=== PATIENT | male | born 1965 | race African-American/Black ===

== ENCOUNTER 2017-03-22 06:54 | Emergency (ER) | payer BC ==
[2017-03-22] MEDS ORDERED: Aspirin 81 MG Tab.Chew PO ONE (07:44)
--- NOTE | 2017-03-22 07:51 | EDM.PDOC ---
ED HPI GENERAL MEDICAL PROBLEM - General Chief Complaint: General Stated Complaint: dizzy Time Seen by Provider: 03/22/17 07:35 Source of Information: Reports: Patient, Family, RN Notes Reviewed History Limitations: Reports: No Limitations - History of Present Illness INITIAL COMMENTS - FREE TEXT/NARRATIVE: 51-year-old gentleman presents emergency department day complaint of chest pain and headache, he has no known history of coronary artery disease or migraines. States the headache started at the same time the chest pain couple hours ago early this morning describes a chest pain sharp stabbing last between 5 and 10 minutes and now has returned to a dull ache right in the center of this chest. The headache he describes as sharp stabbing behind his eyes and continues. He did not feel short of breath but he was diaphoretic with the pain. Headache Pain Score (Numeric/FACES): 8 - Related Data Allergies Allergy/AdvReac Type Severity Reaction Status Date / Time No Known Allergies Allergy Verified 03/22/17 07:17 Home Meds: Home Meds Albuterol [Ventolin HFA] 2 puff INH Q6H PRN 05/15/13 [History] Cetirizine [ZyrTEC] 10 mg PO DAILY PRN 05/15/13 [History] Fluticasone Propionate [Flovent] 1 puff IH BID 05/15/13 [History] Hydrocodone/Acetaminophen [Vicodin 5-300 mg Tablet] 1 each PO Q6HR PRN 05/15/13 [History] Ibuprofen [Motrin] 600 mg PO Q6H PRN 05/15/13 [History] Montelukast [Singulair] 10 mg PO DAILY 05/15/13 [History] Omeprazole 20 mg PO DAILY 05/15/13 [History] Pseudoephedrine [Sudogest] 60 mg PO Q6H PRN 05/15/13 [History] Sucralfate [Carafate] 1 gm PO Q6H PRN 05/15/13 [History] atorvaSTATin [Lipitor] 20 mg PO BEDTIME 05/15/13 [History] metFORMIN [Glucophage] 500 mg PO BID 05/15/13 [History] Fluticasone Propionate [Flonase] 2 spray NASBOTH BID 11/24/15 [History] Past Medical History HEENT History: Reports: Other (See Below) Other HEENT History: doing allergy shots Cardiovascular History: Reports: High Cholesterol Respiratory History: Reports: Asthma Gastrointestinal History: Reports: GERD Endocrine/Metabolic History: Reports: Diabetes, Type II, Obesity/BMI 30+ Dermatologic History: Reports: Other (See Below) Other Dermatologic History: lipoma - Infectious Disease History Infectious Disease History: Reports: Chicken Pox - Past Surgical History HEENT Surgical History: Reports: Adenoidectomy, Tonsillectomy Other Musculoskeletal Surgeries/Procedures:: left rotator cuff surgery, right elbow Social & Family History - Tobacco Use Smoking Status *Q: Never Smoker Years of Tobacco use: 8 Used Tobacco, but Quit: Yes Month Tobacco Last Used: 02/16 Second Hand Smoke Exposure: Yes - Alcohol Use Days Per Week of Alcohol Use: 0 - Recreational Drug Use Recreational Drug Use: No ED ROS GENERAL - Review of Systems Review Of Systems: See Below Constitutional: Reports: Diaphoresis HEENT: Reports: No Symptoms Respiratory: Denies: Shortness of Breath Cardiovascular: Reports: Chest Pain GI/Abdominal: Reports: No Symptoms : Reports: No Symptoms Musculoskeletal: Reports: No Symptoms ED EXAM, GENERAL - Physical Exam Exam: See Below Free Text/Narrative:: General: Male in moderate discomfort secondary to pain, alert and oriented x3 HEENT: head is atraumatic normocephalic, eyes pupils equal round reactive to light, sclera clear no conjunctivitis appreciated. Ears tympanic membranes clear and robles landmarks and light reflex are present bilaterally canals are clear. Nose no septal deviation, nares are clear, no blood present. Mouth mucosa is moist and pink no erythema or exudate noted in soft palate, tongue is midline uvula is absent, dentition is intact. Neck: Supple no thyromegaly no tracheal deviation. Nodes: Cervical nodes subclavicular nodes nontender no palpable lymphadenopathy noted. Lungs: clear to auscultation bilaterally with symmetrical respirations, no adventitious noise appreciated. CV: Regular rate and rhythm S1 and S2 appreciated no murmurs rubs or gallops noted., Chest is tender to palpation sternal area Abdomen: Soft, nontender, no palpable masses or organomegaly appreciated, no distention no guarding bowel sounds are present, . Neuro: Cranial nerves II through XII grossly intact Skin: Warm and dry, intact Extremities: No lower extremity edema appreciated, . Course - Vital Signs Last Recorded V/S: Last Vital Signs Temp 96.6 F 03/22/17 09:31 Pulse 74 03/22/17 09:31 Resp 14 03/22/17 09:31 BP 136/67 03/22/17 09:31 Pulse Ox 98 03/22/17 09:31 - Orders/Labs/Meds Orders: Active Orders 24 hr Category Date Time Status Cardiac Monitoring [RC] .As Directed Care 03/22/17 07:44 Active EKG Documentation Completion [RC] ASDIRECTED Care 03/22/17 07:45 Active EKG 12 Lead [EK] Stat Ther 03/22/17 07:45 Ordered Labs: Laboratory Tests 03/22/17 03/22/17 03/22/17 Range/Units 07:55 07:55 07:55 WBC 6.5 (4.5-11.0) K/uL RBC 4.46 (4.30-5.90) M/uL Hgb 12.8 (12.0-15.0) g/dL Hct 39.7 L (40.0-54.0) % MCV 89 (80-98) fL MCH 29 (27-31) pg MCHC 32 (32-36) % Plt Count 265 (150-400) K/uL Neut % (Auto) 54 (36-66) % Lymph % (Auto) 38 (24-44) % Lassen % (Auto) 7 H (2-6) % Eos % (Auto) 2 (2-4) % Baso % (Auto) 0 (0-1) % PT 10.5 (9.5-12.0) sec INR 0.98 (0.80-1.20) APTT 25.6 L (27.0-36.0) sec Sodium 138 L (140-148) mmol/L Potassium 4.0 (3.6-5.2) mmol/L Chloride 104 (100-108) mmol/L Carbon Dioxide 30 (21-32) mmol/L Anion Gap 8.0 (5.0-14.0) mmol/L BUN 13 (7-18) mg/dL Creatinine 1.0 (0.8-1.3) mg/dL Est Cr Clr Drug Dosing 87.39 mL/min Estimated GFR (MDRD) > 60 (>60) Glucose 142 H (74-106) mg/dL Calcium 8.6 (8.5-10.1) mg/dL Total Bilirubin 0.4 (0.2-1.0) mg/dL AST 17 (15-37) U/L ALT 28 (12-78) U/L Alkaline Phosphatase 54 (46-116) U/L CK-MB (CK-2) 0.8 (0-3.6) mg/mL Troponin I < 0.017 (0.000-0.056) ng/mL Total Protein 6.9 (6.4-8.2) g/dL Albumin 3.3 L (3.4-5.0) g/dL Globulin 3.6 H (2.3-3.5) g/dL Albumin/Globulin Ratio 0.9 L (1.2-2.2) // Range/Units 11:00 WBC (4.5-11.0) K/uL RBC (4.30-5.90) M/uL Hgb (12.0-15.0) g/dL Hct (40.0-54.0) % MCV (80-98) fL MCH (27-31) pg MCHC (32-36) % Plt Count (150-400) K/uL Neut % (Auto) (36-66) % Lymph % (Auto) (24-44) % Lassen % (Auto) (2-6) % Eos % (Auto) (2-4) % Baso % (Auto) (0-1) % PT (9.5-12.0) sec INR (0.80-1.20) APTT (27.0-36.0) sec Sodium (140-148) mmol/L Potassium (3.6-5.2) mmol/L Chloride (100-108) mmol/L Carbon Dioxide (21-32) mmol/L Anion Gap (5.0-14.0) mmol/L BUN (7-18) mg/dL Creatinine (0.8-1.3) mg/dL Est Cr Clr Drug Dosing mL/min Estimated GFR (MDRD) (>60) Glucose (74-106) mg/dL Calcium (8.5-10.1) mg/dL Total Bilirubin (0.2-1.0) mg/dL AST (15-37) U/L ALT (12-78) U/L Alkaline Phosphatase (46-116) U/L CK-MB (CK-2) 0.7 (0-3.6) mg/mL Troponin I < 0.017 (0.000-0.056) ng/mL Total Protein (6.4-8.2) g/dL Albumin (3.4-5.0) g/dL Globulin (2.3-3.5) g/dL Albumin/Globulin Ratio (1.2-2.2) Meds: Medications Discontinued Medications Generic Name Dose Route Start Last Admin Trade Name Laron PRN Reason Stop Dose Admin Aspirin 324 mg 03/22/17 07:44 03/22/17 07:52 Aspirin PO 03/22/17 07:45 324 mg ONETIME ONE Administration Ketorolac Tromethamine 60 mg 03/22/17 08:12 03/22/17 08:33 Toradol IM 03/22/17 08:13 60 mg ONETIME ONE Administration - Re-Assessments/Exams Free Text/Narrative Re-Assessment/Exam: 03/22/17 10:26 heart score is 4 Departure - Departure Time of Disposition: 11:43 Disposition: Home, Self-Care 01 Condition: Good Clinical Impression: Chest pain, atypical - Discharge Information Forms: ED Department Discharge Additional Instructions: Continue to use ibuprofen as needed for pain control, Please followup with your primary care provider in 3-5 days if not better, please call return to the emergency department with worsening of symptoms. - My Orders Last 24 Hours: My Active Orders 03/22/17 07:44 Cardiac Monitoring [RC] .As Directed 03/22/17 07:45 EKG Documentation Completion [RC] ASDIRECTED EKG 12 Lead [EK] Stat - Assessment/Plan Last 24 Hours: My Active Orders 03/22/17 07:44 Cardiac Monitoring [RC] .As Directed 03/22/17 07:45 EKG Documentation Completion [RC] ASDIRECTED EKG 12 Lead [EK] Stat Plan: Assessment Acuity = acute Site and laterality = atypical chest pain, again the patient with known history of diabetes mellitus type 2 Etiology = unclear etiology Manifestations = headache now resolved Location of injury = Home Lab values = CBC unremarkable, albumin low at 3.3 consistent hypoalbuminemia troponin and CK-MB negative 23 hours apart EKG demonstrates a sinus rhythm no ST changes or depressions, chest x-ray also unremarkable Plan I did review lab work EKG and chest x-ray results with him he was given 60 mg of Toradol this did relieve all his chest pain and headache he had no symptoms during his 3 hour stay, plan to discharge home follow-up primary care in 3-5 days for reevaluation Patient was in agreement with the plan all questions were answered, they were instructed to return to the emergency department or call for worsening symptoms. This note was dictated using [employer] voice recognition software please call with any questions.
[2017-03-22] MEDS ORDERED: Ketorolac 60 MG/2 ML SDV IM ONE (08:12)
--- NOTE | 2017-03-22 09:04 | CR ---
Chest 1V Frontal INDICATION: Chest Pain COMPARISON: 02/17/2013 FINDINGS: Single view of the chest obtained shows normal heart size. No infiltrate or pleural effu hope. No signs of pulmonary edema. IMPRESSION: Negative single view of the chest.
[2017-03-22 10:29] VITALS: BP 136/67
== END 2017-03-22 11:53 | disposition home or self-care (01) ==
LOC: JP.ED 06:54
DX: R07.89 Other chest pain (principal); E78.00 Pure hypercholesterolemia, unspecified; J45.909 Unspecified asthma, uncomplicated; K21.9 Gastro-esophageal reflux disease without esophagitis; E11.9 Type 2 diabetes mellitus without complications; E66.9 Obesity, unspecified; Z68.36 Body mass index [BMI] 36.0-36.9, adult; Z79.84 Long term (current) use of oral hypoglycemic drugs; Z79.899 Other long term (current) drug therapy; Z98.890 Other specified postprocedural states
CPT/HCPCS: 36415; 71010; 80053; 82553; 84484; 85025; 85610; 85730; 93005; 96372; 99285; A9270; J1885

== ENCOUNTER 2017-07-09 11:50 | Emergency (ER) | payer BC ==
[2017-07-09 12:04] VITALS: BP 127/77
[2017-07-09] MEDS ORDERED: HYDROmorphone 1 MG/ML Syringe IVPUSH ONE (12:41)
[2017-07-09] MEDS ORDERED: Cyclobenzaprine 10 MG Tab PO ONE (12:41)
--- NOTE | 2017-07-09 12:44 | EDM.PDOC ---
ED HPI GENERAL MEDICAL PROBLEM - General Chief Complaint: Upper Extremity Injury/Pain Stated Complaint: R SHOULDER PAIN/PULLED MUSCLE? Time Seen by Provider: 07/09/17 12:36 Source of Information: Reports: Patient, RN Notes Reviewed History Limitations: Reports: No Limitations - History of Present Illness INITIAL COMMENTS - FREE TEXT/NARRATIVE: 52-year-old gentleman presents emergency department day complaint of right shoulder pain, he believes he injured himself while moving some furniture he can put his arm above his head but it is quite painful he denies any specific trauma or any specific event no numbness and tingling in the fingers Right Shoulder Pain Score (Numeric/FACES): 7 - Related Data Allergies Allergy/AdvReac Type Severity Reaction Status Date / Time No Known Allergies Allergy Verified 03/22/17 07:17 Home Meds: Home Meds Albuterol [Ventolin HFA] 2 puff INH Q6H PRN 05/15/13 [History] Cetirizine [ZyrTEC] 10 mg PO DAILY PRN 05/15/13 [History] Fluticasone Propionate [Flovent] 1 puff IH BID 05/15/13 [History] Hydrocodone/Acetaminophen [Vicodin 5-300 mg Tablet] 1 each PO Q6HR PRN 05/15/13 [History] Ibuprofen [Motrin] 600 mg PO Q6H PRN 05/15/13 [History] Montelukast [Singulair] 10 mg PO DAILY 05/15/13 [History] Omeprazole 20 mg PO DAILY 05/15/13 [History] Pseudoephedrine [Sudogest] 60 mg PO Q6H PRN 05/15/13 [History] Sucralfate [Carafate] 40 mg PO Q6H PRN 05/15/13 [History] atorvaSTATin [Lipitor] 20 mg PO BEDTIME 05/15/13 [History] metFORMIN [Glucophage] 500 mg PO BID 05/15/13 [History] Fluticasone Propionate [Flonase] 2 spray NASBOTH BID 11/24/15 [History] Past Medical History HEENT History: Reports: Other (See Below) Other HEENT History: doing allergy shots Cardiovascular History: Reports: High Cholesterol Respiratory History: Reports: Asthma Gastrointestinal History: Reports: GERD Endocrine/Metabolic History: Reports: Diabetes, Type II, Obesity/BMI 30+ Dermatologic History: Reports: Other (See Below) Other Dermatologic History: lipoma - Infectious Disease History Infectious Disease History: Reports: Chicken Pox - Past Surgical History HEENT Surgical History: Reports: Adenoidectomy, Tonsillectomy Other Musculoskeletal Surgeries/Procedures:: left rotator cuff surgery, right elbow Social & Family History - Tobacco Use Smoking Status *Q: Never Smoker Years of Tobacco use: 8 Used Tobacco, but Quit: Yes Month Tobacco Last Used: 02/16 Second Hand Smoke Exposure: Yes - Caffeine Use Caffeine Use: Reports: Coffee, Tea - Alcohol Use Days Per Week of Alcohol Use: 0 - Recreational Drug Use Recreational Drug Use: No Review of Systems - Review of Systems Review Of Systems: See Below Respiratory: Reports: No Symptoms Musculoskeletal: Reports: Shoulder Pain Skin: Reports: No Symptoms Neurological: Reports: No Symptoms ED EXAM, GENERAL - Physical Exam Exam: See Below Free Text/Narrative:: Examination of the right shoulder he has full range of motion of the shoulder however it is painful once he gets past 90 abduction, radial pulses +2 he is tender to palpation over the deltoid area no erythema or edema is noted Course - Vital Signs Last Recorded V/S: Last Vital Signs Temp 97.5 F 07/09/17 12:02 Pulse 77 07/09/17 12:02 Resp 14 07/09/17 12:02 BP 127/77 07/09/17 12:02 Pulse Ox 98 07/09/17 12:02 - Orders/Labs/Meds Orders: Active Orders 24 hr Category Date Time Status Shoulder Comp Rt [CR] Stat Exams 07/09/17 12:41 Taken Meds: Medications Discontinued Medications Generic Name Dose Route Start Last Admin Trade Name Laron PRN Reason Stop Dose Admin Cyclobenzaprine HCl 10 mg 07/09/17 12:41 07/09/17 12:49 Flexeril PO 07/09/17 12:42 10 mg ONETIME ONE Administration Hydromorphone HCl 1 mg 07/09/17 12:41 Dilaudid IVPUSH 07/09/17 12:42 ONETIME ONE Hydromorphone HCl 1 mg 07/09/17 12:48 07/09/17 12:49 Dilaudid IM 07/09/17 12:49 1 mg ONETIME ONE Administration Departure - Departure Time of Disposition: 13:19 Disposition: Home, Self-Care 01 Condition: Good Clinical Impression: Right shoulder strain Right shoulder strain Qualifiers: Encounter type: initial encounter Qualified Code(s): S46.911A - Strain of unspecified muscle, fascia and tendon at shoulder and upper arm level, right arm , initial encounter - Discharge Information Referrals: Earnest García MD [Primary Care Provider] - Forms: ED Department Discharge Additional Instructions: Continue to use ibuprofen as needed for pain control, try Flexeril as needed for muscle relaxant Please followup with your primary care provider in 3-5 days if not better, please call return to the emergency department with worsening of symptoms. - My Orders Last 24 Hours: My Active Orders 07/09/17 12:41 Shoulder Comp Rt [CR] Stat - Assessment/Plan Last 24 Hours: My Active Orders 07/09/17 12:41 Shoulder Comp Rt [CR] Stat Plan: Assessment Acuity = acute Site and laterality = right shoulder strain Etiology = secondary lifting injury Manifestations = pain Location of injury = Home Lab values = shoulder x-ray I did review films myself I cannot appreciate any acute process, the official read from radiology is pending Plan He had good relief combination Flexeril and Dilaudid, he was able to have good range of motion after pain control, plan is to discharge home with Flexeril 10 mg by mouth 3 times a day when necessary follow-up with primary care in 3-5 days for further evaluation Patient was in agreement with the plan all questions were answered, they were instructed to return to the emergency department or call for worsening symptoms. This note was dictated using [employer] voice recognition software please call with any questions.
[2017-07-09] MEDS ORDERED: HYDROmorphone 1 MG/ML Syringe IM ONE (12:48)
--- NOTE | 2017-07-10 09:53 | CR ---
Shoulder Comp Rt INDICATION: pain COMPARISON: None FINDINGS: 3 views. No fracture, dislocation, or other acute bony abnormality. Moderate degenerati ve and hypertrophic change at the glenohumeral joint. IMPRESSION: Nothing acute.
== END 2017-07-09 13:39 | disposition home or self-care (01) ==
LOC: JP.ED 11:50
DX: S46.911A Strain of unspecified muscle, fascia and tendon at shoulder and upper arm level, right arm, initial encounter (principal); E11.9 Type 2 diabetes mellitus without complications; K21.9 Gastro-esophageal reflux disease without esophagitis; E66.9 Obesity, unspecified; Z79.899 Other long term (current) drug therapy; X50.1XXA Overexertion from prolonged static or awkward postures, initial encounter
CPT/HCPCS: 73030; 96372; 96374; 99284; A9270; J1170

== ENCOUNTER 2017-07-17 09:05 | Day surgery (SDC) | payer BC ==
[2017-07-17] MEDS ORDERED: Acetaminophen 500 MG Tab PO ONE (09:15)
[2017-07-17] MEDS ORDERED: Dextrose 5%-Lactated Ringers 1,000 ML IV SCH ×2 (09:45→14:45)
[2017-07-17] MEDS ORDERED: Albuterol/Ipratropium 3.0-0.5 MG/3 ML Neb Soln NEB ONE (10:00)
[2017-07-17] MEDS ORDERED: Bupivacaine 0.5%/EPINEPHrine 1:200,000 50 ML MDV ONE (10:24)
[2017-07-17] MEDS ORDERED: Ampicillin/Sulbactam Na 3 GM in Sodium Chloride 0.9% 100 ML IV ONE (10:30)
[2017-07-17] MEDS ORDERED: Rocuronium 50 MG/5 ML Vial ONE (10:35)
[2017-07-17] MEDS ORDERED: Glycopyrrolate 0.2 MG/ML 5 ML MDV ONE (10:35)
[2017-07-17] MEDS ORDERED: Succinylcholine 200 MG/10 ML MDV ONE (10:35)
[2017-07-17] MEDS ORDERED: Neostigmine Methylsulfate 1 MG/ML 5 ML Syringe ONE (10:35)
[2017-07-17] MEDS ORDERED: Dexamethasone 4 MG/ML SDV ONE (10:35)
[2017-07-17] MEDS ORDERED: Propofol 200 MG/20 ML SDV ONE (10:36)
[2017-07-17] MEDS ORDERED: fentaNYL 250 MCG/5 ML SDV ONE (10:37)
[2017-07-17] MEDS ORDERED: Midazolam 1 MG/ML 2 ML SDV ONE (10:37)
[2017-07-17] MEDS ORDERED: Ondansetron 4 MG/2 ML SDV ONE (10:39)
[2017-07-17] MEDS ORDERED: HYDROmorphone/Normal Saline 15 MG/30 ML PCA IV PRN (12:40)
[2017-07-17] MEDS ORDERED: Naloxone 0.4 MG/ML SDV IVPUSH PRN (12:40)
[2017-07-17] MEDS ORDERED: Insulin Aspart 100 Units/ML 3 ML Pen SUBCUT ONE (14:00)
[2017-07-17] MEDS ORDERED: Ondansetron 4 MG/2 ML SDV IVPUSH PRN (14:44)
[2017-07-17] MEDS ORDERED: Albuterol/Ipratropium 3.0-0.5 MG/3 ML Neb Soln INH PRN (14:45)
[2017-07-17] MEDS ORDERED: Cyclobenzaprine 10 MG Tab PO PRN (14:46)
[2017-07-17] MEDS ORDERED: Glucose Gel 15 GM in 37.5 GM Tube PO PRN (15:17)
[2017-07-17] MEDS ORDERED: 50% Dextrose in Water 50 ML Syringe IVPUSH PRN (15:17)
[2017-07-17] MEDS ORDERED: Glucagon,Human Recombinant 1 MG Vial IM PRN (15:17)
[2017-07-17] MEDS: Polymyxin B/Trimethoprim 10 ML Bottle EYEBOTH SCH ×2 (16:25→22:00)
[2017-07-17] MEDS: Albuterol/Ipratropium 3.0-0.5 MG/3 ML Neb Soln INH SCH ×2 (16:25→21:59)
[2017-07-17] MEDS: Ibuprofen 600 MG Tab PO SCH ×2 (16:28→22:00)
[2017-07-17] MEDS ORDERED: Pantoprazole 40 MG Vial IV SCH (16:30)
[2017-07-17] MEDS ORDERED: metFORMIN 500 MG Tab PO SCH (17:00)
[2017-07-17] MEDS: Acetaminophen/HYDROcodone 325-5 MG Tab PO PRN ×2 (17:33→22:25)
[2017-07-17] MEDS: Ampicillin/Sulbactam Na 3 GM in Sodium Chloride 0.9% 100 ML IV SCH (18:06)
[2017-07-17] MEDS: Insulin Aspart 100 Units/ML 3 ML Pen SUBCUT PRN ×2 (18:07→22:03)
[2017-07-17] MEDS ORDERED: Montelukast 10 MG Tab PO SCH (21:00)
[2017-07-17] MEDS: Ketotifen 0.025% Ophth Soln 5 ML Bottle EYEBOTH SCH (21:58)
[2017-07-18] MEDS: Ampicillin/Sulbactam Na 3 GM in Sodium Chloride 0.9% 100 ML IV SCH ×2 (00:10→05:30)
[2017-07-18] MEDS: Polymyxin B/Trimethoprim 10 ML Bottle EYEBOTH SCH ×2 (00:10→03:15)
[2017-07-18] MEDS: Acetaminophen/HYDROcodone 325-5 MG Tab PO PRN ×2 (03:14→09:27)
[2017-07-18] MEDS: Ibuprofen 600 MG Tab PO SCH (05:30)
[2017-07-18 08:32] VITALS: BP 114/51
[2017-07-18] MEDS: Ketotifen 0.025% Ophth Soln 5 ML Bottle EYEBOTH SCH (09:28)
--- NOTE | 2017-07-18 17:17 | DISCH ---
FINAL DIAGNOSES: 1. Biliary dyskinesia. 2. Fatty infiltrated liver. 3. Umbilical hernia. 4. Type 2 diabetes mellitus. 5. History of asthma. 6. History of hyperlipidemia. 7. History of lipoma of neck. 8. History of obstructive sleep apnea. OPERATIVE PROCEDURES: These were done on the date of admission; diagnostic laparoscopy followed by; 1. Laparoscopic cholecystectomy. 2. Chapito-Cut needle liver biopsy. 3. Umbilical hernia repair. HOSPITAL COURSE: This is a 52-year-old male presenting with recurrent abdominal pain with an abnormal CCK-stimulated HIDA scan. On the date of admission, he underwent a laparoscopic cholecystectomy, concurrently had a liver biopsy for a fatty-infiltrated liver, and repair of an umbilical hernia. Postoperatively, no major problems have been noted. He will be discharged home today. The patient is a type 2 diabetic, presently only on metformin. The blood sugars have been somewhat elevated here, and I suspect he may not be well controlled. We will have the associate dentist see the patient before discharge and perhaps consider glucose monitor and see how things are going in that regard and, otherwise, record latest blood sugars 2 to 3 times per day and bring a log for followup. He will be following up here to have his lipoma of his neck operated on, on 07/27/2017, and we will recheck the abdominal wounds at that time. DISCHARGE MEDICATIONS: Otherwise, medications are the same as prior to discharge plus [place] 5/325 one to two tabs q.4 hours p.r.n. pain, #50.
--- NOTE | 2017-07-18 17:17 | OR ---
DATE OF PROCEDURE: 07/17/2017 PREOPERATIVE DIAGNOSIS: Biliary dyskinesia. POSTOPERATIVE DIAGNOSES: 1. Biliary dyskinesia. 2. Fatty infiltrated liver. 3. Umbilical hernia. OPERATIVE PROCEDURES: Diagnostic laparoscopy with: 1. Laparoscopic cholecystectomy (57763). 2. Chapito-Cut needle liver biopsy (47857). 3. Repair of umbilical hernia ([id number]). ANESTHESIA: General. WOODWORK TEACHER: Domitila Manning PA-C. INDICATIONS FOR PROCEDURE: This is a 52-year-old male presenting with recurrent upper abdominal pain. As part of the workup, the patient underwent a CCK-stimulated HIDA scan, which showed an ejection fraction of around 7% and the CCK injection caused reproduction of the symptoms. Given this, he is to undergo a cholecystectomy. The potential risks of the procedure including bleeding, infection, injury to underlying viscera such as common bile duct, possible persistent symptoms post cholecystectomy were all reviewed, and the patient wishes to proceed. DETAILS OF PROCEDURE: The patient was taken to the operating room and placed in a supine position. After general endotracheal anesthesia was induced, the abdomen was prepped and draped. A transverse epigastric incision was made, and the peritoneal cavity was entered under direct vision with an Optiview trocar and inflated to 15 mmHg pressure of CO2. Laparoscope was then reinserted. No underlying trocar insertion site injuries were seen. Following this, the laparoscope was reinserted. Upon panning down toward the umbilicus, the patient was noted to have a small umbilical hernia. Photodocumentation of this was obtained. A transverse subumbilical incision was made and the umbilical site trocar was brought directly through the center of the hernia. This easily passed through the hernia indicating a diameter of around 1 cm. Additional 5-mm trocar was then placed in the right upper quadrant. With the camera now in the umbilical port, the patient was noted to have a distended and somewhat edematous gallbladder consistent with chronic cholecystitis. The patient was also noted to have a fatty-appearing liver. This was suggested on the ultrasound. Given the patient's clinical metabolic syndrome and fatty liver, Chapito-Cut needle biopsy was obtained from the right lobe of the liver and minimal bleeding from the biopsy sites was controlled with electrocautery. The gallbladder was then retracted anteriorly and dissection began on the gallbladder neck. Some omental adhesions were taken down with Harmonic scalpel and dissection eventually continued down the gallbladder neck and cystic duct junction. Once that area was well delineated as was the adjacent cystic artery, both structures were clipped 3 times proximally and once distally, and gallbladder neck and cystic duct junction divided. Gallbladder was then divided off the gallbladder bed using Harmonic scalpel and delivered through the upper midline port. Aspiration of the gallbladder contents revealed small amount of sludge material in the gallbladder a cholesterolosis-appearing mucosa. The area of dissection was inspected. No bleeding or other problems were noted. Arterial and ductal clips appeared to be secured and given this, it was felt that a drain was not necessary. The scope was then brought up to the epigastric site once again, and the umbilical trocar was removed. The umbilical hernia was then closed with some 0 Vicryl sutures. These were initially placed with a transverse orientation and once the peritoneal cavity was deflated, these were then tied, thus repairing the umbilical hernia. Upon placement of those sutures, the remaining trocars were removed. The fascia at the epigastric site was closed with 0 Vicryl stitch. After tying the umbilical hernia sutures, each of the incisions were closed with some 4-0 Vicryl subcuticular stitch along with Dermabond. The patient was taken to the recovery room in a satisfactory condition. Physician teachers assistant, Domitila Manning, played an essential role in assisting in this case, helping to position the patient, retract structures as needed, as well as suturing and cutting sutures when indicated. Her presence improved patient safety and decreased the operative time. Devyn Russell MD /[id number]
== END 2017-07-18 09:40 | disposition home or self-care (01) ==
LOC: JP.SDS 09:05 → JP.2SS 13:35 → JP.SDS 07-18 09:40
PROVIDERS: ATTEND Surgery
DX: K81.1 Chronic cholecystitis (principal); K76.0 Fatty (change of) liver, not elsewhere classified; K42.9 Umbilical hernia without obstruction or gangrene; E83.19 Other disorders of iron metabolism; J45.909 Unspecified asthma, uncomplicated; E11.9 Type 2 diabetes mellitus without complications; G47.33 Obstructive sleep apnea (adult) (pediatric); E78.5 Hyperlipidemia, unspecified; Z99.89 Dependence on other enabling machines and devices; Z79.84 Long term (current) use of oral hypoglycemic drugs; Z79.899 Other long term (current) drug therapy; Z87.891 Personal history of nicotine dependence
CPT/HCPCS: 36415; 47001; 47562; 49652; 82247; 82962; 84075; 85027; 88304; 88307; 88313; 94640; A9270; C9113; J0295; J0330; J1100; J1170; J2250; J2405; J2704; J2710; J3010; J7030; J7042; J7620

== ENCOUNTER 2017-07-27 07:21 | Day surgery (SDC) | payer BC ==
[~2017-07-27 07:21] MED LIST: Bacitracin Oint 1 GM U/D Packet ONE; Bupivacaine 0.5% 50 ML MDV ONE; Lidocaine 1% with EPINEPHrine 1:100,000 50 ML MDV ONE
[2017-07-27] MEDS ORDERED: Celecoxib 200 MG Cap PO ONE (07:30)
[2017-07-27] MEDS ORDERED: Acetaminophen 500 MG Tab PO ONE (07:30)
[2017-07-27] MEDS ORDERED: Albuterol/Ipratropium 3.0-0.5 MG/3 ML Neb Soln NEB ONE (08:30)
[2017-07-27] MEDS ORDERED: ceFAZolin 2 GM in Premix Bag 1 BAG IV ONE (08:30)
[2017-07-27] MEDS: Dextrose 5%-Lactated Ringers 1,000 ML IV SCH ×2 (08:39→14:59)
[2017-07-27] MEDS ORDERED: Propofol 200 MG/20 ML SDV ONE (09:20)
[2017-07-27] MEDS ORDERED: Ondansetron 4 MG/2 ML SDV ONE (09:20)
[2017-07-27] MEDS ORDERED: fentaNYL 250 MCG/5 ML SDV ONE (09:20)
[2017-07-27] MEDS ORDERED: Glycopyrrolate 0.2 MG/ML 5 ML MDV ONE (09:20)
[2017-07-27] MEDS ORDERED: Succinylcholine 200 MG/10 ML MDV ONE (09:20)
[2017-07-27] MEDS ORDERED: Neostigmine Methylsulfate 1 MG/ML 5 ML Syringe ONE (09:20)
[2017-07-27] MEDS ORDERED: Dexamethasone 4 MG/ML SDV ONE (09:20)
[2017-07-27] MEDS ORDERED: Rocuronium 50 MG/5 ML Vial ONE (09:20)
[2017-07-27] MEDS ORDERED: Linezolid 200 MG/100 ML Bag IRR ONE (10:00)
[2017-07-27] MEDS ORDERED: Insulin Aspart 100 Units/ML 3 ML Pen SUBCUT SCH (11:15)
[2017-07-27] MEDS ORDERED: Ondansetron 4 MG/2 ML SDV IVPUSH PRN (12:05)
[2017-07-27] MEDS ORDERED: Albuterol/Ipratropium 3.0-0.5 MG/3 ML Neb Soln INH PRN (12:06)
[2017-07-27] MEDS ORDERED: Glucagon,Human Recombinant 1 MG Vial IM PRN (12:07)
[2017-07-27] MEDS ORDERED: 50% Dextrose in Water 50 ML Syringe IVPUSH PRN (12:07)
[2017-07-27] MEDS ORDERED: Cyclobenzaprine 10 MG Tab PO PRN (12:07)
[2017-07-27] MEDS ORDERED: Glucose Gel 15 GM in 37.5 GM Tube PO PRN (12:07)
[2017-07-27] MEDS: Acetaminophen/HYDROcodone 325-5 MG Tab PO PRN ×3 (12:27→23:38)
[2017-07-27] MEDS: ceFAZolin 2 GM in Sodium Chloride 0.9% 50 ML IV SCH ×2 (16:08→23:38)
[2017-07-27] MEDS: Ibuprofen 600 MG Tab PO SCH ×2 (16:08→21:21)
[2017-07-27] MEDS: metFORMIN 500 MG Tab PO SCH (16:11)
[2017-07-27] MEDS: Albuterol/Ipratropium 3.0-0.5 MG/3 ML Neb Soln INH SCH ×3 (16:18→21:20)
[2017-07-27] MEDS: Insulin Aspart 100 Units/ML 3 ML Pen SUBCUT PRN ×2 (16:39→21:25)
[2017-07-27] MEDS ORDERED: Montelukast 10 MG Tab PO SCH (21:00)
[2017-07-27] MEDS: Ketotifen 0.025% Ophth Soln 5 ML Bottle EYEBOTH SCH (21:20)
[2017-07-28] MEDS: Dextrose 5%-Lactated Ringers 1,000 ML IV SCH (01:14)
[2017-07-28] MEDS: Acetaminophen/HYDROcodone 325-5 MG Tab PO PRN ×2 (03:24→08:01)
[2017-07-28] MEDS: Ibuprofen 600 MG Tab PO SCH (06:42)
[2017-07-28 07:01] VITALS: BP 136/66
[2017-07-28] MEDS ORDERED: Pantoprazole 40 MG Tab.CR PO SCH (07:30)
[2017-07-28] MEDS: Ketotifen 0.025% Ophth Soln 5 ML Bottle EYEBOTH SCH (08:01)
[2017-07-28] MEDS: ceFAZolin 2 GM in Sodium Chloride 0.9% 50 ML IV SCH (08:01)
[2017-07-28] MEDS: metFORMIN 500 MG Tab PO SCH (08:01)
[2017-07-28] MEDS: Insulin Aspart 100 Units/ML 3 ML Pen SUBCUT PRN (08:03)
--- NOTE | 2017-07-31 07:17 | DISCH ---
FINAL DIAGNOSIS: Recurrent subfascial lipoma, upper back and posterior neck. SECONDARY DIAGNOSES: 1. Type 2 diabetes mellitus. 2. Obstructive sleep apnea. 3. Obesity. 4. Asthma. OPERATIVE PROCEDURE: Excision of recurrent subfascial lipoma of the upper back and posterior neck that was done on 07/27. SUMMARY: This 52-year-old male presenting with an enlarging recurrent lipoma in the upper back and lower neck posteriorly. This was excised and was found to have a subfascial component, inserting itself underneath some muscular fibers in the midline neck. Postoperatively, no significant problems. He will be discharged home with a JAY drain in place and continue the [place] 5/325 mg 1 to 2 tabs q.4 hours p.r.n. pain and will follow up with Dr. Russell in [facility] on 08/09/2017.
--- NOTE | 2017-07-31 11:46 | OR ---
DATE OF PROCEDURE: 07/27/2017 PREOPERATIVE DIAGNOSIS: Recurrent lipoma upper back and lower posterior neck. POSTOPERATIVE DIAGNOSIS: Recurrent subfascial lipoma upper back and lower posterior neck. OPERATIVE PROCEDURE: Excision of recurrent subfascial lipoma upper back and lower posterior neck ([id number]). ANESTHESIA: General. INDICATION FOR PROCEDURE: This is a 52-year-old male presenting with an enlarging lipoma located in the upper posterior neck and back. Most of the lesion would be considered on the back and a very small amount extending up into the neck per se. Our plan is to proceed with excision of this. Potential risks including bleeding, infection, recurrence of the process once again, some cosmetic deformity and such were reviewed, and the patient wishes to proceed. DESCRIPTION OF PROCEDURE: The patient was taken to the operating room and placed in the supine position. After general endotracheal anesthesia was induced, he was converted to a left lateral decubitus position and the upper back and neck areas were then prepped and draped. The previous incision was reused, but not its entire length and this was carried down through the skin and subcutaneous tissue, portion of that incision, which was somewhat hypertrophic was excised. The dissection then continued down along the plane of lipoma. This was eventually dissected free primarily with electrocautery and delivered in what appeared to be an intact manner. Planes of the lipoma included insinuation underneath some of the musculature near the midline of the upper back and neck above the muscular fascia. The specimen was then delivered from field and measured 10 cm in total length. The dissection was inspected and irrigated with antibiotic-containing saline solution. The incision was then closed with 3-0 and 4-0 Vicryl stitch deep. A 10-Egyptian round Russell- Zimmerman drain was taken out through the left of the incision and placed across bed of the incision. The incision itself was then closed with a 5-0 Prolene skin stitch. The patient was taken to the recovery room in satisfactory condition. There were no evident complications. Devyn Russell MD /[id number]
== END 2017-07-28 09:45 | disposition home or self-care (01) ==
LOC: JP.SDS 07:21 → JP.MS 10:45 → JP.SDS 07-28 09:45
PROVIDERS: ATTEND Surgery
DX: D17.0 Benign lipomatous neoplasm of skin and subcutaneous tissue of head, face and neck (principal); J45.909 Unspecified asthma, uncomplicated; E11.9 Type 2 diabetes mellitus without complications; G47.33 Obstructive sleep apnea (adult) (pediatric); E78.5 Hyperlipidemia, unspecified; Z79.84 Long term (current) use of oral hypoglycemic drugs; Z79.899 Other long term (current) drug therapy; Z87.891 Personal history of nicotine dependence
CPT/HCPCS: 21933; 82962; 88304; 94762; A9270; J0330; J0690; J1100; J2020; J2405; J2704; J2710; J3010; J7042; J7050; J7620

== ENCOUNTER 2017-08-11 19:51 | Emergency (ER) | payer BC, OTHER ==
[2017-08-11 20:16] VITALS: BP 140/78
--- NOTE | 2017-08-11 20:53 | EDM.PDOC ---
ED HPI GENERAL MEDICAL PROBLEM - General Chief Complaint: Skin Complaint Stated Complaint: SURGERY 07/27 NOT DOING GOOD Time Seen by Provider: 08/11/17 20:35 Source of Information: Reports: Patient, Family, Old Records History Limitations: Reports: No Limitations - History of Present Illness INITIAL COMMENTS - FREE TEXT/NARRATIVE: 52 yo male had a lipoma removed from his upper back recently by Dr. Russell. Patient and his agree that the drain came out earlier than they originally wanted. Now since earlier today he has noted increased swelling to the area and some increase in discomfort. He has some [place] left for pain relief. Has felt warm, but has not measured a fever. They called Dr. Russell before coming to the ER [facility], but he was not available. Onset: Today Onset Date: 08/11/17 Duration: Hour(s):, Getting Worse Location: Reports: Back (upper) Quality: Reports: Dull Severity: Moderate Improves with: Reports: None Worsens with: Reports: Other (? time) Context: Reports: Other (Recent surgery to area.) Associated Symptoms: Reports: No Other Symptoms Treatments COMPUTER SPECIALIST: Reports: NSAIDS, Other (see below) Other Treatments COMPUTER SPECIALIST: [place] and ibuprofen Back of Neck Pain Score (Numeric/FACES): 8 - Related Data Allergies Allergy/AdvReac Type Severity Reaction Status Date / Time No Known Allergies Allergy Verified 07/27/17 07:50 Home Meds: Home Meds Hydrocodone/Acetaminophen [Vicodin 5-300 mg Tablet] 1 each PO Q6HR PRN 05/15/13 [History] Montelukast [Singulair] 10 mg PO DAILY 05/15/13 [History] Omeprazole 40 mg PO BEDTIME 05/15/13 [History] Pseudoephedrine [Sudogest] 60 mg PO Q6H PRN 05/15/13 [History] Sucralfate [Carafate] 1 gm PO TID 05/15/13 [History] atorvaSTATin [Lipitor] 40 mg PO BEDTIME 05/15/13 [History] metFORMIN [Glucophage] 1,000 mg PO BID 05/15/13 [History] Fluticasone Propionate [Flonase] 2 spray NASBOTH BID 11/24/15 [History] Albuterol Sulfate [Proair Hfa] 2 inh INH Q4H PRN 07/14/17 [History] Albuterol/Ipratropium [DuoNeb 3.0-0.5 MG/3 ML] 3 ml INH Q4H PRN 07/14/17 [ History] Cyclobenzaprine [Flexeril] 10 mg PO TID PRN 07/14/17 [History] Fluticasone Propionate [Flovent HFA] 2 inh INH BID 07/14/17 [History] Ibuprofen [Advil] 200 mg PO Q4H PRN 07/14/17 [History] Sildenafil Citrate [Sildenafil] 50 mg PO DAILY PRN 07/14/17 [History] Triamcinolone Acetonide [Kenalog 0.1% Crm] 1 applic TOP TID 07/14/17 [History] Past Medical History HEENT History: Reports: Allergic Rhinitis, Other (See Below) Other HEENT History: doing allergy shots Cardiovascular History: Reports: High Cholesterol Respiratory History: Reports: Asthma, Sleep Apnea Gastrointestinal History: Reports: Cholelithiasis, GERD Genitourinary History: Reports: None Musculoskeletal History: Reports: Fracture Neurological History: Reports: None Psychiatric History: Reports: None Endocrine/Metabolic History: Reports: Diabetes, Type II, Obesity/BMI 30+ Hematologic History: Reports: None Immunologic History: Reports: None Oncologic (Cancer) History: Reports: None Dermatologic History: Reports: Other (See Below) Other Dermatologic History: lipoma - Infectious Disease History Infectious Disease History: Reports: Chicken Pox, Measles, Mumps, Pertussis ( Whooping Cough) - Past Surgical History Head Surgeries/Procedures: Reports: None HEENT Surgical History: Reports: Adenoidectomy, Tonsillectomy Other HEENT Surgeries/Procedures: UPP also Cardiovascular Surgical History: Reports: None Respiratory Surgical History: Reports: Other (See Below) Other Respiratory Surgeries/Procedures: as child had whooping cough GI Surgical History: Reports: Cholecystectomy, Colonoscopy, EGD, Hernia, Abdominal Endocrine Surgical History: Reports: None Neurological Surgical History: Reports: None Musculoskeletal Surgical History: Reports: Shoulder Surgery Other Musculoskeletal Surgeries/Procedures:: left rotator cuff surgery, right elbow Oncologic Surgical History: Reports: None Dermatological Surgical History: Reports: Other (See Below) Social & Family History - Family History Family Medical History: Noncontributory - Tobacco Use Smoking Status *Q: Never Smoker Years of Tobacco use: 10 Packs/Tins Daily: 0.3 Used Tobacco, but Quit: Yes Month Tobacco Last Used: 2012 Second Hand Smoke Exposure: No - Caffeine Use Caffeine Use: Reports: Coffee, Soda - Alcohol Use Days Per Week of Alcohol Use: 0 - Recreational Drug Use Recreational Drug Use: No ED ROS GENERAL - Review of Systems Review Of Systems: See Below Constitutional: Reports: Chills. Denies: Fever HEENT: Reports: No Symptoms Respiratory: Reports: No Symptoms Cardiovascular: Reports: No Symptoms GI/Abdominal: Reports: No Symptoms : Reports: No Symptoms Musculoskeletal: Reports: No Symptoms Skin: Reports: Other (surgical wound to the upper back from lipoma removal per Dr. Russell.) Neurological: Reports: No Symptoms ED EXAM, SKIN/RASH Exam: See Below Exam Limited By: No Limitations General Appearance: Alert, WD/WN, No Apparent Distress Respiratory/Chest: No Respiratory Distress, No Accessory Muscle Use Cardiovascular: Regular Rate, Rhythm Back Exam: Other (Well healed horizontal surgical scar upper back. No drainage. There is fluid on palpation below the skin from the premature drain removal. No erythema or increased warmth on palpation. ) Extremities: Normal Inspection, Normal Range of Motion Neurological: Alert, Oriented, CN II-XII Intact, Normal Cognition, No Motor/ Sensory Deficits Course - Vital Signs Last Recorded V/S: Last Vital Signs Temp 37.4 C 08/11/17 20:33 Pulse 82 08/11/17 20:33 Resp 18 08/11/17 20:33 BP 140/78 08/11/17 20:33 Pulse Ox 98 08/11/17 20:33 Departure - Departure Time of Disposition: 20:55 Disposition: Home, Self-Care 01 Condition: Good Clinical Impression: Encounter for wound re-check - Discharge Information Referrals: Devyn Russell MD [Primary Care Provider] - Forms: ED Department Discharge Additional Instructions: Continue your current pain meds as needed. Report any temperature over 100F, or return for visible redness. If the swelling progresses further let Dr. Russell know next Monday.
== END 2017-08-11 21:10 | disposition home or self-care (01) ==
LOC: JP.ED 19:51
DX: Z48.817 Encounter for surgical aftercare following surgery on the skin and subcutaneous tissue (principal); Z87.891 Personal history of nicotine dependence; J45.909 Unspecified asthma, uncomplicated; E78.00 Pure hypercholesterolemia, unspecified; K21.9 Gastro-esophageal reflux disease without esophagitis; E11.9 Type 2 diabetes mellitus without complications; Z98.890 Other specified postprocedural states; Z79.84 Long term (current) use of oral hypoglycemic drugs; Z79.899 Other long term (current) drug therapy
CPT/HCPCS: 99283

== ENCOUNTER 2019-10-17 23:44 | Emergency (ER) | payer BC, OTHER ==
[2019-10-18 00:30] VITALS: BP 139/81; PULSE 85
--- NOTE | 2019-10-18 00:33 | EDM.PDOC ---
ED HPI GENERAL MEDICAL PROBLEM - General Chief Complaint: Abdominal Pain Stated Complaint: RIGHT RIB PAIN Time Seen by Provider: 10/18/19 00:32 Source of Information: Reports: Patient History Limitations: Reports: No Limitations - History of Present Illness INITIAL COMMENTS - FREE TEXT/NARRATIVE: 54-year-old male with a right anterior chest pain for the past 3 days. A mild cough and intermittent low-grade fever, no abdominal pain or radiation to the back. Pain is very localized just underneath the right breast. No trauma. No rash over the sore area. No previous similar symptoms. Onset: Gradual Duration: Day(s): (3 days) Location: Reports: Chest Quality: Reports: Sharp, Stabbing Worsens with: Reports: Breathing, Movement Associated Symptoms: Reports: Chest Pain, Cough (Mild), Fever/Chills (Low-grade intermittent fevers). Denies: Nausea/Vomiting, Shortness of Breath upper right rib pain Pain Score (Numeric/FACES): 7 - Related Data Allergies Allergy/AdvReac Type Severity Reaction Status Date / Time No Known Allergies Allergy Verified 10/18/19 00:12 Home Meds: Home Meds Montelukast [Singulair] 10 mg PO BEDTIME 05/15/13 [History] Pseudoephedrine [Sudogest] 60 mg PO Q6H PRN 05/15/13 [History] Sucralfate [Carafate] 1 gm PO TID PRN 05/15/13 [History] Fluticasone Propionate [Flonase] 2 spray NASBOTH BID 11/24/15 [History] Albuterol Sulfate [Proair Hfa] 2 inh INH Q4H PRN 07/14/17 [History] Albuterol/Ipratropium [DuoNeb 3.0-0.5 MG/3 ML] 3 ml INH Q4H PRN 07/14/17 [ History] Cyclobenzaprine [Flexeril] 10 mg PO TID PRN 07/14/17 [History] Fluticasone Propionate [Flovent HFA] 2 inh INH BID 07/14/17 [History] Ibuprofen [Advil] 200 mg PO Q4H PRN 07/14/17 [History] Sildenafil Citrate [Sildenafil] 50 mg PO DAILY PRN 07/14/17 [History] Triamcinolone Acetonide [Kenalog 0.1% Crm] 1 applic TOP TID 07/14/17 [History] Pantoprazole Sodium [Protonix] 40 mg PO DAILY 10/18/19 [History] Rosuvastatin [Crestor] 10 mg PO BEDTIME 10/18/19 [History] SitaGLIPtin [Januvia] 100 mg PO DAILY 10/18/19 [History] glipiZIDE [Glucotrol] 5 mg PO BID 10/18/19 [History] Past Medical History HEENT History: Reports: Allergic Rhinitis, Other (See Below) Other HEENT History: doing allergy shots Cardiovascular History: Reports: High Cholesterol Respiratory History: Reports: Asthma, Sleep Apnea Gastrointestinal History: Reports: Cholelithiasis, GERD Genitourinary History: Reports: None Musculoskeletal History: Reports: Fracture, Other (See Below) Other Musculoskeletal History: left foot pain Neurological History: Reports: None Psychiatric History: Reports: None Endocrine/Metabolic History: Reports: Diabetes, Type II, Obesity/BMI 30+ Hematologic History: Reports: None Immunologic History: Reports: None Oncologic (Cancer) History: Reports: None Dermatologic History: Reports: Other (See Below) Other Dermatologic History: lipoma - Infectious Disease History Infectious Disease History: Reports: Chicken Pox, Measles, Mumps - Past Surgical History Head Surgeries/Procedures: Reports: None HEENT Surgical History: Reports: Adenoidectomy, Tonsillectomy Other HEENT Surgeries/Procedures: UPP also Respiratory Surgical History: Reports: Other (See Below) Other Respiratory Surgeries/Procedures: as child had whooping cough GI Surgical History: Reports: Cholecystectomy, Colonoscopy, EGD, Hernia, Abdominal Male Surgical History: Reports: Other (See Below) Other Male Surgeries/Procedures: erectile dysfunction Musculoskeletal Surgical History: Reports: Shoulder Surgery Other Musculoskeletal Surgeries/Procedures:: left rotator cuff surgery, right elbow Oncologic Surgical History: Reports: None Dermatological Surgical History: Reports: Other (See Below) Social & Family History - Family History Family Medical History: Noncontributory - Tobacco Use Smoking Status *Q: Never Smoker - Caffeine Use Caffeine Use: Reports: Coffee - Recreational Drug Use Recreational Drug Use: No ED ROS GENERAL - Review of Systems Review Of Systems: See Below Constitutional: Reports: Fever. Denies: Chills, Malaise HEENT: Reports: No Symptoms Respiratory: Reports: Pleuritic Chest Pain, Cough. Denies: Shortness of Breath Cardiovascular: Reports: Chest Pain GI/Abdominal: Denies: Abdominal Pain, Nausea, Vomiting Skin: Reports: No Symptoms Neurological: Reports: No Symptoms Psychiatric: Reports: No Symptoms ED EXAM, GENERAL - Physical Exam Exam: See Below Exam Limited By: No Limitations General Appearance: Alert, No Apparent Distress Head: Atraumatic Neck: Normal Inspection Respiratory/Chest: No Respiratory Distress, Lungs Clear, Other (Patient has a very localized area of tenderness to palpation just under the right breast) Cardiovascular: Regular Rate, Rhythm GI/Abdominal: Soft, Non-Tender Course - Vital Signs Last Recorded V/S: Last Vital Signs Temp 99.3 F 10/18/19 00:30 Pulse 85 10/18/19 00:30 Resp 17 10/18/19 00:30 BP 139/81 10/18/19 00:30 Pulse Ox 95 10/18/19 00:30 - Orders/Labs/Meds Orders: Active Orders 24 hr Category Date Time Status Chest 2V [CR] Routine Exams 10/18/19 00:41 Taken Meds: Medications Discontinued Medications Generic Name Dose Route Start Last Admin Trade Name Laron PRN Reason Stop Dose Admin Ketorolac Tromethamine 60 mg 10/18/19 00:40 10/18/19 00:58 Toradol IM 10/18/19 00:41 60 mg ONETIME ONE Administration - Re-Assessments/Exams Free Text/Narrative Re-Assessment/Exam: 10/18/19 00:47 60 mg of IM Toradol was given, followed by a two-view chest x-ray. 10/18/19 02:15 Patient received moderate pain relief with the Toradol and the two-view chest x- ray was negative. He will be given 20 more doses of Toradol to take 1 every 6 hours over the next several days. Heating pad and increase activity as tolerated. Return if worsening such as fever or increasing shortness of breath or pain. Departure - Departure Time of Disposition: 02:30 Disposition: Home, Self-Care 01 Clinical Impression: Costochondritis, acute - Discharge Information Instructions: Costochondritis Referrals: PCP,None [Primary Care Provider] - Forms: ED Department Discharge Care Plan Goals: Take 1 Toradol every 6-8 hours for the next 4 to 5 days, a heating pad may be helpful and increase activity as tolerated. Return if worsening such as fever or shortness of breath, otherwise consider rechecking early next week if not improving satisfactorily. Sepsis Event Note - Evaluation Sepsis Screening Result: No Definite Risk - Focused Exam Vital Signs: Vital Signs Temp Pulse Resp BP Pulse Ox 10/18/19 00:30 99.3 F 85 17 139/81 95 10/18/19 00:29 99.3 F 85 17 139/81 95 Date Exam was Performed: 10/18/19 Time Exam was Performed: 03:50 - My Orders Last 24 Hours: My Active Orders 10/18/19 00:41 Chest 2V [CR] Routine - Assessment/Plan Last 24 Hours: My Active Orders 10/18/19 00:41 Chest 2V [CR] Routine
[2019-10-18] MEDS ORDERED: Ketorolac 60 MG/2 ML SDV IM ONE (00:40)
--- NOTE | 2019-10-18 08:59 | CR ---
CHEST: 2 view CLINICAL HISTORY:Dyspnea COMPARISON:2017 FINDINGS: The heart size, pulmonary vascularity and hilar structures are normal. No infiltrate effusion or pneumothorax is seen. IMPRESSION: No acute cardiopulmonary process.
== END 2019-10-18 02:31 | disposition home or self-care (01) ==
LOC: JP.ED 23:44
DX: M94.0 Chondrocostal junction syndrome [Tietze] (principal); E78.00 Pure hypercholesterolemia, unspecified; J45.909 Unspecified asthma, uncomplicated; K21.9 Gastro-esophageal reflux disease without esophagitis; E11.9 Type 2 diabetes mellitus without complications; E66.9 Obesity, unspecified; Z68.37 Body mass index [BMI] 37.0-37.9, adult; Z79.899 Other long term (current) drug therapy; Z79.84 Long term (current) use of oral hypoglycemic drugs
CPT/HCPCS: 71046; 96372; 99284; J1885

== ENCOUNTER 2021-04-28 05:52 | Day surgery (SDC) | payer OTHER, BC ==
[2021-04-28] MEDS ORDERED: Lactated Ringers 1,000 ML IV SCH (06:00)
[2021-04-28] MEDS ORDERED: Nozin Nasal Sanitizer NASBOTH ONE (06:00)
[2021-04-28] MEDS ORDERED: Bupivacaine 0.5% 30 ML SDV ONE ×2 (07:06→07:27)
[2021-04-28] MEDS ORDERED: Propofol 200 MG/20 ML SDV ONE ×2 (07:25→08:35)
[2021-04-28] MEDS ORDERED: Midazolam 1 MG/ML 2 ML SDV ONE (07:25)
[2021-04-28] MEDS ORDERED: fentaNYL 100 MCG/2 ML SDV ONE (07:25)
[2021-04-28] MEDS ORDERED: ceFAZolin 2 GM in Premix Bag 1 BAG IV ONE (07:30)
[2021-04-28 11:20] VITALS: BP 138/97; PULSE 85
--- NOTE | 2021-05-10 22:46 | OR ---
DATE OF PROCEDURE: 04/28/2021 SURGEON: Rene Villagomez MD PREOPERATIVE DIAGNOSIS: Recurrent rotator cuff tear, right shoulder. POSTOPERATIVE DIAGNOSES: 1. Right shoulder synovitis. 2. Adhesive capsulitis. 3. Osteoarthritis, glenohumeral joint grade 2, and grade 3 glenoid and humeral head. 4. Subacromial scar tissue formation. PROCEDURES: 1. Arthroscopy, right shoulder, with limited synovectomy including anterior capsule rotator cuff interval. 2. Debridement of labrum. 3. Debridement of subacromial space with thickened bursa. ANESTHESIA: Interscalene block with sedation. INDICATIONS: Elias is a very pleasant 55-year-old gentleman with history of right rotator cuff tear who underwent repair several months ago and has been experiencing persistent shoulder pain, decreased range of motion, and decreased strength. Followup MRI reveals an area of increased signal just adjacent to the previous repair consistent with a recurrent or new partial-thickness or small full-thickness cuff tear. Due to failure to progress with physical therapy and persistent pain, he was taken to the operating room for evaluation of the rotator cuff and repair as necessary. Risks, benefits and potential complications of the procedure were discussed. DESCRIPTION OF PROCEDURE: After adequate anesthesia was obtained, the patient was placed in lateral decubitus position and secured with a moreno bag positioner. The right shoulder and arm were prepped and draped in sterile fashion and 10 pounds of traction was placed in shoulder traction unit. A standard posterior portal was established and glenohumeral joint was entered. Scope was introduced and glenohumeral joint was evaluated. This revealed fairly extensive synovitis throughout the shoulder, noted particularly anteriorly. Thickening of the anterior capsule was noted consistent with capsulitis. It should be noted that prior to placement of the scope during positioning and prepping, the arm was noted to be significantly stiff with decreased range of motion even under anesthesia consistent with arthrofibrosis/adhesive capsulitis. Anterior portal was established and using combination of radiofrequency ablation and a shaver, limited synovectomy was performed, debriding the synovitis primarily from anterior capsule up over the biceps anchor. Biceps was intact. Subscapularis was intact. Glenohumeral joint revealed significant degenerative changes with grade 2 and 3 articular cartilage loss from both the humeral head and glenoid, particularly of the anterior glenoid. Some mild degenerative fraying of the labrum was present. Again using a combination of shaver and the ablation wand, a portion of the anterior capsule was debrided, particularly the rotator cuff interval, and the capsule was released along the anterior attachment to the glenoid down to just below the subscapularis. Biceps anchor was intact with no SLAP tear. Posterior labrum showed some mild degenerative changes, but no instability. Undersurface of the rotator cuff was thoroughly inspected, showed evidence of previous repair, but no full-thickness or significant partial-thickness tear was noted. The scope was removed and placed into the subacromial space. Significant thickened bursa and scar tissue was present within the subacromial space. Lateral portal was established and using combination of the shaver and ablation wand, bursa was cleared and the rotator cuff was evaluated. This was again found to be intact with no evidence of a new tear. The significant amount of bursitis and inflammation within the subacromial space would account for increased signal noted on the MRI. The arm was taken through internal and external rotation and abduction, thoroughly inspecting the cuff, which was also probed with the blunt obturator and no evidence of partial thickness tear or thinning was noted. Area of the previous repair was completely scarred over with adherent bursa. This was probed but not completely debrided as this may have endangered the sutures from the previous repair and weakened the construct. The scope was removed. Traction was released and the arm was taken through range of motion. This allowed significant increase in his range of motion with overhead flexion to 170 degrees and external rotation to 45 degrees, which was significant improvement from preop. Port sites were closed in a standard fashion with 3-0 Monocryl and Steri-Strips. Sterile dressing was applied. The patient tolerated the procedure well. There were no complications. He was taken from the operating room in stable condition. Rene Villagomez MD /[id number]
== END 2021-04-28 11:05 | disposition home or self-care (01) ==
LOC: JP.SDS 05:52
PROVIDERS: ATTEND Specialist
DX: M75.101 Unspecified rotator cuff tear or rupture of right shoulder, not specified as traumatic (principal); M65.811 Other synovitis and tenosynovitis, right shoulder; M75.01 Adhesive capsulitis of right shoulder; M19.011 Primary osteoarthritis, right shoulder; M75.51 Bursitis of right shoulder; E11.9 Type 2 diabetes mellitus without complications; E66.9 Obesity, unspecified; J45.40 Moderate persistent asthma, uncomplicated; E78.5 Hyperlipidemia, unspecified; G47.33 Obstructive sleep apnea (adult) (pediatric); Z98.890 Other specified postprocedural states; Z79.899 Other long term (current) drug therapy; Z79.4 Long term (current) use of insulin; Z87.891 Personal history of nicotine dependence
CPT/HCPCS: 29823; 36415; 80053; 85027; A9270; C1713; J0690; J2250; J2704; J3010; J3490; J7120

== ENCOUNTER 2021-08-05 07:06 | Day surgery (SDC) | payer BC ==
[2021-08-05] MEDS ORDERED: Propofol 200 MG/20 ML SDV ONE (07:12)
[2021-08-05] MEDS ORDERED: Midazolam 1 MG/ML 2 ML SDV ONE (07:12)
[2021-08-05] MEDS ORDERED: fentaNYL 100 MCG/2 ML SDV ONE (07:12)
[2021-08-05] MEDS ORDERED: Dextrose 5%-Lactated Ringers 1,000 ML IV SCH (07:45)
[2021-08-05] MEDS ORDERED: Glycopyrrolate 0.2 MG/ML 2 ML SDV IVPUSH ONE (08:30)
[2021-08-05 11:47] VITALS: BP 113/77; PULSE 78
--- NOTE | 2021-08-06 11:25 | OR ---
DATE OF PROCEDURE: 08/05/2021 SURGEON: Devyn Russell MD PREOPERATIVE DIAGNOSIS: Gastroesophageal reflux disease refractory to medical management. POSTOPERATIVE DIAGNOSES: 1. Gastroesophageal reflux disease refractory to medical management associated with a 2 cm hiatal hernia and wide open esophagogastric junction. 2. Gastroparesis as evidenced by retained bile and solid food contents in stomach. 3. Mild antral gastritis. OPERATIVE PROCEDURE: Upper gastrointestinal endoscopy with: 1. Biopsies of esophagogastric junction for histologic evaluation. 2. Biopsies of antrum for CLOtest. ANESTHESIA: IV sedation. INDICATION FOR PROCEDURE: This is a 56-year-old male presenting with ongoing gastroesophageal reflux disease. This involves quite bit in the way of heartburn and some bilious aspiration and waking up coughing at times, presently is on Protonix 40 mg as well as Carafate without significant relief of his symptoms. Plan is to proceed with upper GI endoscopy with biopsies as indicated. Potential risks including bleeding and perforation were discussed, and the patient wishes to proceed. DETAILS OF PROCEDURE: The patient was taken to the operating room, placed in a left lateral decubitus position. IV sedation was administered, after which the upper GI endoscope was passed orally through the length of the esophagus into the stomach with retroflexion view of the fundus, and thereafter through the pyloric channel and into the proximal duodenum. Findings included a somewhat reddened hypopharynx, larynx. Upper esophageal sphincter and esophageal body were unremarkable. At the EG junction, roughly 2 cm of hiatal hernia was noted. This was associated with essentially a wide-open esophagogastric junction with loss of any angulation noted at that level, which would facilitate easy reflux into the esophagus. There was a mild to marked inflammation grossly present in terms of distal esophagus being friable and somewhat edematous. Within the stomach, it was notable there was a large amount of retained bile, and the bile was able to be removed. There was also quite a bit in the way of retained food in the stomach. This would be indicative of a gastroparesis, which would in this case likely be a diabetic-related gastroparesis. There was some mild redness in the antrum without erosions or ulcers. The pyloric channel and proximal duodenum were unremarkable. At this point, biopsies obtained from esophagogastric junction and sent for histologic evaluation along with biopsies of antrum for CLOtest. No significant bleeding was noted from the biopsy sites, and the procedure was then concluded. Managing this patient at this point included 2 issues. The 1st is a gastroesophageal reflux disease refractory to medical management and 2nd one is the morbid obesity with BMI being 35 with type 2 diabetes mellitus, presently on both Januvia and Trulicity. A Vicki fundoplication in this case would be over time likely relatively ineffective due to the obesity whereas a gastric bypass would provide definitive relief of the reflux and also treat this morbid obesity along with associated comorbidities including his type 2 diabetes mellitus as well as likely some component of his asthma. Plan will be to see the patient back next week to discuss those treatment options. Devyn Russell MD /[id number]
== END 2021-08-05 11:48 | disposition home or self-care (01) ==
LOC: JP.SDS 07:06
PROVIDERS: ATTEND Surgery
DX: K29.50 Unspecified chronic gastritis without bleeding (principal); K21.9 Gastro-esophageal reflux disease without esophagitis; K44.9 Diaphragmatic hernia without obstruction or gangrene; K31.84 Gastroparesis; J45.909 Unspecified asthma, uncomplicated; G47.33 Obstructive sleep apnea (adult) (pediatric); E11.9 Type 2 diabetes mellitus without complications; E66.9 Obesity, unspecified; Z68.34 Body mass index [BMI] 34.0-34.9, adult
CPT/HCPCS: 43239; 87081; J2250; J2704; J3010; J3490; J7121

== ENCOUNTER 2022-01-17 06:06 | Day surgery (SDC) | payer OTHER ==
[2022-01-17] MEDS ORDERED: Lactated Ringers 1,000 ML IV SCH (06:30)
[2022-01-17] MEDS ORDERED: Bupivacaine 0.5% 50 ML MDV ONE (06:37)
[2022-01-17 06:50] LABS: ESTIMATED GFR > 60 (>60)
[2022-01-17] MEDS: Nozin Nasal Sanitizer NASBOTH SCH ×3 (06:50→21:15)
[2022-01-17] MEDS ORDERED: ceFAZolin 2 GM in Premix Bag 1 BAG IV ONE (07:30)
[2022-01-17] MEDS ORDERED: fentaNYL 250 MCG/5 ML SDV ONE (07:31)
[2022-01-17] MEDS ORDERED: Succinylcholine 200 MG/10 ML MDV ONE (07:32)
[2022-01-17] MEDS ORDERED: Dexamethasone 4 MG/ML SDV ONE (07:32)
[2022-01-17] MEDS ORDERED: Propofol 200 MG/20 ML SDV ONE (07:32)
[2022-01-17] MEDS ORDERED: Rocuronium 50 MG/5 ML Vial ONE (07:32)
[2022-01-17] MEDS ORDERED: Glycopyrrolate 0.2 MG/ML 5 ML MDV ONE (07:32)
[2022-01-17] MEDS ORDERED: Ondansetron 4 MG/2 ML SDV ONE (07:32)
[2022-01-17] MEDS ORDERED: Neostigmine Methylsulfate 1 MG/ML 5 ML Syringe ONE (07:32)
[2022-01-17] MEDS ORDERED: Bupivacaine 0.5% 30 ML SDV ONE (07:35)
[2022-01-17] MEDS ORDERED: Lidocaine 1% 2 ML ONE (07:58)
[2022-01-17] MEDS ORDERED: Lactated Ringers 1,000 ML ONE (09:47)
[2022-01-17] MEDS ORDERED: traMADol 50 MG Tab PO PRN (10:17)
[2022-01-17] MEDS ORDERED: Ondansetron 4 MG/2 ML SDV IVPUSH PRN (10:17)
[2022-01-17] MEDS ORDERED: HYDROmorphone 0.5 MG/0.5 ML Syringe IVPUSH PRN (10:17)
[2022-01-17] MEDS ORDERED: Sucralfate 1 GM Tab PO PRN (10:21)
[2022-01-17] MEDS ORDERED: Albuterol 8 GM Inhaler INH PRN (10:21)
[2022-01-17] MEDS ORDERED: SUMAtriptan 50 MG Tab PO PRN (10:30)
[2022-01-17] MEDS ORDERED: Sodium Chloride 0.9% 1,000 ML IV SCH (10:30)
[2022-01-17] MEDS ORDERED: Diazepam 5 MG Tab PO PRN (10:30)
[2022-01-17] MEDS: Acetaminophen 500 MG Tab PO SCH ×3 (13:48→23:10)
[2022-01-17] MEDS: oxyCODONE 5 MG Tab PO PRN ×3 (13:53→23:09)
[2022-01-17] MEDS: ceFAZolin 1 GM in Premix Bag 1 BAG IV SCH ×2 (14:17→21:25)
[2022-01-17] MEDS ORDERED: Latanoprost 0.005% Ophth Soln 2.5 ML Bottle EYEBOTH SCH ×2 (17:00→21:00)
[2022-01-17] MEDS ORDERED: traZODone 50 MG Tab PO SCH ×2 (17:00→21:00)
[2022-01-17] MEDS: Pantoprazole 40 MG Tab.CR PO SCH (17:55)
[2022-01-17] MEDS ORDERED: Rosuvastatin 10 MG Tab PO SCH (21:00)
[2022-01-17] MEDS ORDERED: Montelukast 10 MG Tab PO SCH (21:00)
[2022-01-17] MEDS: Docusate Sodium 100 MG Cap PO SCH (21:14)
[2022-01-17] MEDS: Mometasone Furoate HFA 100mcg/Puff 13 GM Inhaler INH SCH (21:15)
[2022-01-18] MEDS: oxyCODONE 5 MG Tab PO PRN (03:49)
[2022-01-18] MEDS: Acetaminophen 500 MG Tab PO SCH (05:46)
[2022-01-18] MEDS: ceFAZolin 1 GM in Premix Bag 1 BAG IV SCH (05:46)
[2022-01-18] MEDS: Mometasone Furoate HFA 100mcg/Puff 13 GM Inhaler INH SCH (07:27)
[2022-01-18] MEDS: Nozin Nasal Sanitizer NASBOTH SCH (08:06)
[2022-01-18] MEDS: Docusate Sodium 100 MG Cap PO SCH (08:06)
[2022-01-18] MEDS: Pantoprazole 40 MG Tab.CR PO SCH (08:06)
[2022-01-18 08:09] VITALS: BP 125/53; PULSE 82
[2022-01-18] MEDS ORDERED: Fluticasone NASAL Spray 16 GM Bottle NASBOTH SCH (09:00)
[2022-01-18] MEDS ORDERED: Ketotifen 0.025% Ophth Soln 5 ML Bottle EYEBOTH SCH (09:00)
[2022-01-18] MEDS ORDERED: Tamsulosin 0.4 MG Cap.ER PO SCH (09:00)
== END 2022-01-18 10:14 | disposition home or self-care (01) ==
LOC: JP.SDS 06:06 → JP.2SS 10:17 → JP.SDS 01-18 10:14
PROVIDERS: ATTEND Specialist
DX: M19.011 Primary osteoarthritis, right shoulder (principal); M75.01 Adhesive capsulitis of right shoulder; J45.909 Unspecified asthma, uncomplicated; G47.33 Obstructive sleep apnea (adult) (pediatric); E66.9 Obesity, unspecified; E11.9 Type 2 diabetes mellitus without complications; Z87.891 Personal history of nicotine dependence; Z68.35 Body mass index [BMI] 35.0-35.9, adult
CPT/HCPCS: 23470; 36415; 73020-26-RT; 73020-RT; 80053; 82947; 85027; 94640; 97161-GP; A9270-GY; C1776; J0330; J0690; J1100; J2405; J2704; J2710; J3010; J3490; J7030; J7120

== ENCOUNTER 2022-03-28 06:06 | Day surgery (SDC) | payer BC, OTHER ==
[2022-03-28] MEDS ORDERED: Nozin Nasal Sanitizer NASBOTH ONE (06:15)
[2022-03-28] MEDS ORDERED: Bupivacaine 0.5% 30 ML SDV ONE (06:48)
[2022-03-28] MEDS ORDERED: Propofol 200 MG/20 ML SDV ONE (07:20)
[2022-03-28] MEDS ORDERED: Midazolam 1 MG/ML 2 ML SDV ONE (07:20)
[2022-03-28] MEDS ORDERED: fentaNYL 100 MCG/2 ML SDV ONE (07:20)
[2022-03-28] MEDS ORDERED: Lidocaine 0.5% 50 ML SDV ONE (07:21)
[2022-03-28] MEDS ORDERED: Lactated Ringers 1,000 ML IV SCH (07:30)
[2022-03-28] MEDS ORDERED: ceFAZolin 1 GM in Premix Bag 1 BAG IV ONE (07:30)
[2022-03-28] MEDS ORDERED: Acetaminophen/oxyCODONE 325-5 MG Tab PO PRN (09:05)
[2022-03-28 09:29] VITALS: BP 163/84; PULSE 85
== END 2022-03-28 09:53 | disposition home or self-care (01) ==
LOC: JP.SDS 06:06
PROVIDERS: ATTEND Specialist
DX: M65.842 Other synovitis and tenosynovitis, left hand (principal); E11.9 Type 2 diabetes mellitus without complications; K21.9 Gastro-esophageal reflux disease without esophagitis; E78.00 Pure hypercholesterolemia, unspecified; E66.9 Obesity, unspecified; G47.33 Obstructive sleep apnea (adult) (pediatric); J45.909 Unspecified asthma, uncomplicated; F17.200 Nicotine dependence, unspecified, uncomplicated; Z68.35 Body mass index [BMI] 35.0-35.9, adult; Z79.899 Other long term (current) drug therapy; Z98.890 Other specified postprocedural states
CPT/HCPCS: 26055; 36415; 80048; 85027; A9270; J0690; J2250; J2704; J3010; J3490; J7120

== ENCOUNTER 2022-07-20 06:36 | Day surgery (SDC) | payer BC, OTHER ==
[2022-07-20] MEDS ORDERED: Bupivacaine 0.5% 30 ML SDV ONE (06:53)
[2022-07-20] MEDS ORDERED: Nozin Nasal Sanitizer NASBOTH ONE (07:00)
[2022-07-20] MEDS ORDERED: Lactated Ringers 1,000 ML IV SCH (07:00)
[2022-07-20 07:10] LABS: ESTIMATED GFR 100 mL/min (>60)
[2022-07-20] MEDS ORDERED: fentaNYL 100 MCG/2 ML SDV ONE (07:50)
[2022-07-20] MEDS ORDERED: Midazolam 1 MG/ML 2 ML SDV ONE (07:50)
[2022-07-20] MEDS ORDERED: Propofol 200 MG/20 ML SDV ONE (07:50)
[2022-07-20] MEDS ORDERED: ceFAZolin 1 GM Vial ONE (07:53)
[2022-07-20] MEDS ORDERED: Lidocaine 0.5% 50 ML SDV ONE (07:53)
[2022-07-20] MEDS ORDERED: Sodium Chloride 0.9% 10 ML ONE (07:53)
[2022-07-20] MEDS ORDERED: ceFAZolin 1 GM in Premix Bag 1 BAG IV ONE (08:30)
[2022-07-20] MEDS ORDERED: Acetaminophen/HYDROcodone 325-5 MG Tab PO PRN (09:15)
[2022-07-20 09:43] VITALS: BP 184/95; PULSE 79
== END 2022-07-20 10:14 | disposition home or self-care (01) ==
LOC: JP.SDS 06:36
PROVIDERS: ATTEND Specialist
PROC: 0LN80ZZ Release Left Hand Tendon, Open Approach (ICD-10-PCS; principal; 2022-07-20)
DX: M65.322 Trigger finger, left index finger (principal); G47.33 Obstructive sleep apnea (adult) (pediatric); E78.5 Hyperlipidemia, unspecified; E11.9 Type 2 diabetes mellitus without complications
CPT/HCPCS: 26055; 36415; 80048; A9270; J0690; J2250; J2704; J3010; J3490; J7120

== ENCOUNTER 2022-08-29 11:15 | Emergency (ER) | payer BC, OTHER ==
[2022-08-29 11:29] VITALS: BP 151/86; PULSE 82
[2022-08-29] MEDS ORDERED: Ketorolac 30 MG/ML SDV IVPUSH ONE (11:39)
== END 2022-08-29 12:47 | disposition home or self-care (01) ==
LOC: JP.ED 11:15
DX: R10.9 Unspecified abdominal pain (principal); E78.00 Pure hypercholesterolemia, unspecified; E11.9 Type 2 diabetes mellitus without complications; E66.9 Obesity, unspecified; Z68.34 Body mass index [BMI] 34.0-34.9, adult; Z79.899 Other long term (current) drug therapy; Z86.16 Personal history of COVID-19; Z90.49 Acquired absence of other specified parts of digestive tract
CPT/HCPCS: 74176; 81001; 96374; 99284; J1885; 99283

== ENCOUNTER 2022-11-24 17:01 | Emergency (ER) | payer BC, OTHER ==
[2022-11-24] MEDS ORDERED: Sodium Chloride 0.9% 10 ML Syringe FLUSH PRN (18:05)
[2022-11-24] MEDS ORDERED: HYDROmorphone 0.5 MG/0.5 ML Syringe IVPUSH ONE (18:08)
[2022-11-24] MEDS ORDERED: Ondansetron 4 MG/2 ML SDV IVPUSH ONE (18:08)
[2022-11-24] MEDS ORDERED: Sodium Chloride 0.9% 50 ML IV ONE (18:12)
[2022-11-24] MEDS ORDERED: Iopamidol 612 MG/ML 100 ML Bottle IV ONE (18:12)
[2022-11-24] MEDS: Sodium Chloride 0.9% 10 ML Syringe FLUSH ONE ×2 (18:22→18:59)
[2022-11-24 18:42] LABS: ESTIMATED GFR 100 mL/min (>60)
[2022-11-24] MEDS ORDERED: Alum Hydrox/Mag Hydrox/Simeth 15 ML, Lidocaine 2% 15 ML PO ONE ×2 (19:23)
[2022-11-24 21:29] VITALS: BP 159/94; PULSE 83
== END 2022-11-24 21:27 | disposition home or self-care (01) ==
LOC: JP.ED 17:01
DX: K92.89 Other specified diseases of the digestive system (principal); F43.21 Adjustment disorder with depressed mood; R19.7 Diarrhea, unspecified; J45.909 Unspecified asthma, uncomplicated; E78.00 Pure hypercholesterolemia, unspecified; K21.9 Gastro-esophageal reflux disease without esophagitis; E11.9 Type 2 diabetes mellitus without complications; E66.9 Obesity, unspecified; Z79.51 Long term (current) use of inhaled steroids; Z79.84 Long term (current) use of oral hypoglycemic drugs; Z79.899 Other long term (current) drug therapy; Z86.16 Personal history of COVID-19; Z68.34 Body mass index [BMI] 34.0-34.9, adult
CPT/HCPCS: 36415; 74177; 80053; 81001; 83690; 85025; 86140; 96374; 96375; 99283; 99284; A9270; J1170; J2405; J3490; Q9967

== ENCOUNTER → 2022-12-16 | Day surgery (SDC) | payer BC, OTHER ==
[~2022-12-16] MED LIST changes: -Bacitracin Oint 1 GM U/D Packet ONE; -Bupivacaine 0.5% 50 ML MDV ONE; +Lactated Ringers 1,000 ML IV SCH; -Lidocaine 1% with EPINEPHrine 1:100,000 50 ML MDV ONE; +Midazolam 1 MG/ML 2 ML SDV ONE; +Propofol 200 MG/20 ML SDV ONE; +fentaNYL 100 MCG/2 ML SDV ONE
[2022-12-16 08:41] VITALS: BP 107/66; PULSE 76
== END ==
LOC: JP.SDS 06:33
PROVIDERS: ATTEND Surgery
DX: K21.00 Gastro-esophageal reflux disease with esophagitis, without bleeding (principal); K22.89 Other specified disease of esophagus; K31.89 Other diseases of stomach and duodenum; J45.909 Unspecified asthma, uncomplicated; G47.33 Obstructive sleep apnea (adult) (pediatric); E78.5 Hyperlipidemia, unspecified; E66.9 Obesity, unspecified; Z79.899 Other long term (current) drug therapy; Z68.34 Body mass index [BMI] 34.0-34.9, adult
CPT/HCPCS: 43239; 82947; 88305; J2250; J2704; J3010; J7120

== ENCOUNTER 2023-02-28 07:30 | Inpatient (IN) | payer BC, OTHER ==
[2023-04-04] MEDS ORDERED: Scopolamine 1.5 MG Transdermal Patch TOP SCH (06:00)
[2023-04-04] MEDS ORDERED: Celecoxib 200 MG Cap PO ONE (06:00)
[2023-04-04] MEDS ORDERED: Dextrose 5%-Lactated Ringers 1,000 ML IV SCH (06:00)
[2023-04-04 06:06] LABS: HEMATOCRIT 39.5 % (38.4-49.7); HEMOGLOBIN 12.9 g/dL (12.9-16.9); MEAN CORPUSCULAR HEMOGLOBIN 28.5 pg (31.6-35.5); MEAN CORPUSCULAR HGB CONC 32.7 g/dL (31.6-35.5); MEAN CORPUSCULAR VOLUME 87.4 fL (81.4-99.0); RED BLOOD CELL COUNT 4.52 M/uL (4.14-5.76); WHITE BLOOD CELL COUNT,WBC 5.1 K/uL (3.2-11.0)
[2023-04-04] MEDS ORDERED: Albuterol/Ipratropium 3.0-0.5 MG/3 ML Neb Soln NEB ONE (06:30)
[2023-04-04 06:33] LABS: ALANINE AMINOTRANSFERASE,ALT 30 U/L (12-78); ALBUMIN 3.4 g/dL (3.4-5.0); ALKALINE PHOSPHATASE 74 U/L (46-116); ASPARTATE AMNIOTRANSFERASE,AST 13 U/L (15-37); BILIRUBIN TOTAL 0.5 mg/dL (0.2-1.0); BLOOD UREA NITROGEN,BUN 11 mg/dL (7-18); CARBON DIOXIDE,CO2 28 mmol/L (21-32); CHLORIDE,CL 101 mmol/L (100-108); EST CRCL DRUG DOSING (CG) 80.18 mL/min; ESTIMATED GFR 88 mL/min (>60); GLUCOSE RANDOM 296 mg/dL (74-106); MAGNESIUM 1.6 mg/dL (1.8-2.4); POTASSIUM,K 3.9 mmol/L (3.6-5.2); PRO B-TYPE NATRIUR PEPT,BNPPRO 8 pg/mL (5-125); PROTEIN TOTAL,TP 6.8 g/dL (6.4-8.2); SODIUM,NA 137 mmol/L (140-148)
[2023-04-04 06:34] LABS: ANION GAP 11.9 mmol/L (5.0-14.0)
[2023-04-04] MEDS ORDERED: cefOXitin 2 GM Vial ONE (06:42)
[2023-04-04] MEDS ORDERED: cefOXitin 2 GM in Sodium Chloride 0.9% 50 ML IV ONE (07:00)
[2023-04-04] MEDS ORDERED: Neostigmine Methylsulfate 1 MG/ML 5 ML Syringe ONE (07:08)
[2023-04-04] MEDS ORDERED: Glycopyrrolate 0.2 MG/ML 5 ML MDV ONE (07:08)
[2023-04-04] MEDS ORDERED: Rocuronium 50 MG/5 ML Vial ONE (07:08)
[2023-04-04] MEDS ORDERED: Succinylcholine 200 MG/10 ML MDV ONE (07:08)
[2023-04-04] MEDS ORDERED: fentaNYL 250 MCG/5 ML SDV ONE ×2 (07:08→08:11)
[2023-04-04] MEDS ORDERED: Dexamethasone 4 MG/ML SDV ONE (07:08)
[2023-04-04] MEDS ORDERED: Ondansetron 4 MG/2 ML SDV ONE (07:08)
[2023-04-04] MEDS ORDERED: Propofol 200 MG/20 ML SDV ONE (07:08)
[2023-04-04] MEDS ORDERED: Ketamine 20 MG in Sodium Chloride 0.9% 19.8 ML IV SCH (07:30)
[2023-04-04] MEDS ORDERED: Ketamine 500 MG/5 ML MDV IV SCH (07:30)
[2023-04-04] MEDS ORDERED: Naloxone 0.4 MG/ML SDV ONE (09:31)
[2023-04-04] MEDS ORDERED: Naloxone 0.4 MG/ML SDV IVPUSH PRN (09:51)
[2023-04-04] MEDS ORDERED: hydrOXYzine HCL 100 MG/2 ML SDV IM ONE (10:00)
[2023-04-04] MEDS ORDERED: fentaNYL 50 MCG/ML SDV IVPUSH ONE (10:00)
[2023-04-04 10:11] LABS: HEMOGLOBIN A1C 8.7 % (4.5-6.2)
[2023-04-04] MEDS ORDERED: Acetaminophen 500 MG Tab PO PRN (11:00)
[2023-04-04] MEDS ORDERED: Labetalol 20 MG/4 ML Syringe IVPUSH PRN (11:00)
[2023-04-04] MEDS ORDERED: diphenhydrAMINE 50 MG/ML SDV IVPUSH PRN (11:00)
[2023-04-04] MEDS ORDERED: HYDROmorphone 0.5 MG/0.5 ML Syringe IVPUSH PRN (11:00)
[2023-04-04] MEDS ORDERED: HYDROmorphone 1 MG/ML Syringe IV PRN (11:00)
[2023-04-04] MEDS ORDERED: traMADol 50 MG Tab PO PRN (11:00)
[2023-04-04] MEDS ORDERED: Albuterol/Ipratropium 3.0-0.5 MG/3 ML Neb Soln INH PRN (11:00)
[2023-04-04] MEDS ORDERED: Ondansetron 4 MG/2 ML SDV IVPUSH PRN (11:00)
[2023-04-04] MEDS ORDERED: Metoclopramide 10 MG/2 ML SDV IVPUSH PRN (11:00)
[2023-04-04] MEDS: Albuterol/Ipratropium 3.0-0.5 MG/3 ML Neb Soln INH SCH ×3 (12:06→21:36)
[2023-04-04] MEDS: Cyclobenzaprine 10 MG Tab PO PRN (12:10)
[2023-04-04] MEDS ORDERED: traZODone 50 MG Tab PO PRN (12:29)
[2023-04-04] MEDS ORDERED: Pantoprazole 40 MG Vial IVPUSH SCH (14:00)
[2023-04-04] MEDS ORDERED: hydrOXYzine HCL 100 MG/2 ML SDV IM PRN (14:00)
[2023-04-04] MEDS: Acetaminophen 500 MG Tab PO SCH ×2 (14:31→23:58)
[2023-04-04] MEDS: cefOXitin 2 GM in Sodium Chloride 0.9% 50 ML IV SCH ×2 (14:31→19:32)
[2023-04-04] MEDS: oxyCODONE 5 MG Tab PO PRN (14:31)
[2023-04-04] MEDS: MVI, Adult with Vitamin K 10 ML, Thiamine 200 MG, Zinc/Copper/Manganese/Selenium 1 ML i... IV SCH ×4 (15:21)
[2023-04-04] MEDS ORDERED: Ketotifen 0.025% Ophth Soln 5 ML Bottle EYEBOTH PRN (15:58)
[2023-04-04] MEDS: Heparin Sodium 5,000 Units/ML Vial SUBCUT SCH (16:59)
[2023-04-04] MEDS: Insulin Lispro 100 Unit/ML 3 ML KwikPen SUBCUT SCH ×2 (17:04→21:37)
[2023-04-04] MEDS ORDERED: FLOVENT INH SCH (21:00)
[2023-04-04] MEDS: Montelukast 10 MG Tab PO SCH (21:37)
[2023-04-04] MEDS: Latanoprost 0.005% Ophth Soln 2.5 ML Bottle EYEBOTH SCH (21:37)
[2023-04-04] MEDS: Mometasone Furoate HFA 100mcg/Puff 13 GM Inhaler INH SCH (21:39)
[2023-04-04] MEDS: Lactated Ringers 1,000 ML IV SCH (21:46)
[2023-04-05] MEDS: cefOXitin 2 GM in Sodium Chloride 0.9% 50 ML IV SCH ×4 (01:29→19:27)
[2023-04-05] MEDS ORDERED: Iopamidol 612 MG/ML 30 ML SDV PO STA (03:01)
[2023-04-05] MEDS: Lactated Ringers 1,000 ML IV SCH (04:03)
[2023-04-05] MEDS: Cyclobenzaprine 10 MG Tab PO PRN (04:07)
[2023-04-05] MEDS: Heparin Sodium 5,000 Units/ML Vial SUBCUT SCH ×2 (04:12→15:23)
[2023-04-05 05:00] LABS: BASOPHILS PERCENT AUTO 0.1 % (0.1-1.3); HEMATOCRIT 37.8 % (38.4-49.7); HEMOGLOBIN 12.7 g/dL (12.9-16.9); IMMATURE GRAN ABSOLUTE AUTO 0.05 K/uL (0.00-0.23); IMMATURE GRAN PERCENT AUTO 0.4 % (0.0-0.7); LYMPHOCYTES ABSOLUTE AUTO 0.79 K/uL (0.8-3.3); LYMPHOCYTES PERCENT AUTO 6.9 % (11.4-47.7); MEAN CORPUSCULAR HEMOGLOBIN 28.9 pg (31.6-35.5); MEAN CORPUSCULAR HGB CONC 33.6 g/dL (31.6-35.5); MEAN CORPUSCULAR VOLUME 86.1 fL (81.4-99.0); MONOCYTES ABSOLUTE AUTO 0.39 K/uL (0.20-0.90); MONOCYTES PERCENT AUTO 3.4 % (3.3-12.6); NEUTROPHILS ABSOLUTE AUTO 10.28 K/uL (1.0-7.6); NEUTROPHILS PERCENT AUTO 89.2 % (40.0-78.1); PLATELET COUNT,PLT 253 K/uL (130-375); RED BLOOD CELL COUNT 4.39 M/uL (4.14-5.76); WHITE BLOOD CELL COUNT,WBC 11.5 K/uL (3.2-11.0)
[2023-04-05 05:20] LABS: BASOPHILS ABSOLUTE AUTO 0.01 K/uL (0.00-0.10)
[2023-04-05 05:26] LABS: A/G RATIO 0.9 (1.2-2.2); ALANINE AMINOTRANSFERASE,ALT 69 U/L (12-78); ALBUMIN 3.2 g/dL (3.4-5.0); ALKALINE PHOSPHATASE 66 U/L (46-116); ASPARTATE AMNIOTRANSFERASE,AST 37 U/L (15-37); BILIRUBIN TOTAL 0.6 mg/dL (0.2-1.0); BLOOD UREA NITROGEN,BUN 12 mg/dL (7-18); CARBON DIOXIDE,CO2 26 mmol/L (21-32); CHLORIDE,CL 99 mmol/L (100-108); CREATININE 0.9 mg/dL (0.8-1.3); EST CRCL DRUG DOSING (CG) 89.09 mL/min; ESTIMATED GFR 100 mL/min (>60); GLUCOSE RANDOM 270 mg/dL (74-106); MAGNESIUM 1.6 mg/dL (1.8-2.4); PHOSPHORUS 3.6 mg/dL (2.5-4.9); POTASSIUM,K 4.2 mmol/L (3.6-5.2); PRO B-TYPE NATRIUR PEPT,BNPPRO 219 pg/mL (5-125); PROTEIN TOTAL,TP 6.6 g/dL (6.4-8.2); SODIUM,NA 136 mmol/L (140-148)
[2023-04-05 05:36] LABS: ANION GAP 15.2 mmol/L (5.0-14.0)
[2023-04-05] MEDS: Insulin Lispro 100 Unit/ML 3 ML KwikPen SUBCUT SCH ×4 (05:43→21:59)
[2023-04-05] MEDS: Acetaminophen 500 MG Tab PO SCH ×3 (06:06→21:26)
[2023-04-05] MEDS: Albuterol/Ipratropium 3.0-0.5 MG/3 ML Neb Soln INH SCH ×3 (07:03→14:49)
[2023-04-05] MEDS: Mometasone Furoate HFA 100mcg/Puff 13 GM Inhaler INH SCH ×2 (07:05→20:50)
[2023-04-05] MEDS ORDERED: Ondansetron 4 MG Tab.DIS PO PRN (08:08)
[2023-04-05] MEDS ORDERED: Non-Formulary Medication 1 Each (Olopatadine [Pataday 0.2% Ophth Soln] 2.5 ML Bottle) EYEBOTH PRN (08:11)
[2023-04-05] MEDS ORDERED: Lactated Ringers 1,000 ML IV SCH (08:15)
[2023-04-05] MEDS ORDERED: FLUTICASONE PROPIONATE INH SCH (09:00)
[2023-04-05] MEDS: Celecoxib 200 MG Cap PO SCH ×2 (09:17→20:51)
[2023-04-05] MEDS: SCOPOLAMINE PATCH CHECK TOP SCH (09:17)
[2023-04-05] MEDS: Finasteride 5 MG Tab PO SCH (09:17)
[2023-04-05] MEDS: oxyCODONE 5 MG Tab PO PRN ×3 (09:24→21:24)
[2023-04-05] MEDS: Magnesium Sulfate/Water 2 GM in Premix Bag 1 BAG IV SCH ×3 (09:25→21:25)
[2023-04-05] MEDS: Pantoprazole 40 MG Delayed-Release Granules 1 Packet PO SCH (12:17)
[2023-04-05] MEDS: MVI, Adult with Vitamin K 10 ML, Thiamine 200 MG, Zinc/Copper/Manganese/Selenium 1 ML i... IV SCH ×4 (15:21)
[2023-04-05] MEDS ORDERED: Levalbuterol HCl 1.25 MG/3 ML Neb NEB PRN (16:37)
[2023-04-05] MEDS ORDERED: Loratadine 10 MG Tab ONE (20:37)
[2023-04-05] MEDS: Latanoprost 0.005% Ophth Soln 2.5 ML Bottle EYEBOTH SCH (20:51)
[2023-04-05] MEDS: Montelukast 10 MG Tab PO SCH (20:51)
[2023-04-05] MEDS: Loratadine 10 MG Tab.DIS PO SCH (20:52)
[2023-04-05] MEDS ORDERED: Montelukast 10 MG Tab PO SCH (21:00)
[2023-04-05] MEDS ORDERED: Latanoprost 0.005% Ophth Soln 2.5 ML Bottle SCH (21:00)
[2023-04-06] MEDS: cefOXitin 2 GM in Sodium Chloride 0.9% 50 ML IV SCH ×2 (02:26→09:18)
[2023-04-06] MEDS: oxyCODONE 5 MG Tab PO PRN ×2 (04:12→10:37)
[2023-04-06] MEDS: Cyclobenzaprine 10 MG Tab PO PRN (04:12)
[2023-04-06] MEDS: Heparin Sodium 5,000 Units/ML Vial SUBCUT SCH (04:14)
[2023-04-06] MEDS: Magnesium Sulfate/Water 2 GM in Premix Bag 1 BAG IV SCH ×2 (04:14→10:25)
[2023-04-06] MEDS: Insulin Lispro 100 Unit/ML 3 ML KwikPen SUBCUT SCH ×2 (05:51→10:25)
[2023-04-06] MEDS: Acetaminophen 500 MG Tab PO SCH (05:59)
[2023-04-06 06:01] VITALS: BP 133/79; PULSE 84
[2023-04-06] MEDS: Mometasone Furoate HFA 100mcg/Puff 13 GM Inhaler INH SCH (07:02)
[2023-04-06] MEDS: Pantoprazole 40 MG Delayed-Release Granules 1 Packet PO SCH (08:01)
[2023-04-06] MEDS: Finasteride 5 MG Tab PO SCH (08:02)
[2023-04-06] MEDS: SCOPOLAMINE PATCH CHECK TOP SCH (08:02)
[2023-04-06] MEDS: Loratadine 10 MG Tab.DIS PO SCH (08:02)
[2023-04-06] MEDS: Celecoxib 200 MG Cap PO SCH (08:02)
[2023-04-06] MEDS ORDERED: Magnesium Hydroxide 400 MG/5 ML Susp 30 ML Cup PO ONE (09:00)
[2023-04-06] MEDS ORDERED: Cyanocobalamin (Vitamin B12) 1,000 MCG/ML SDV IM ONE (09:00)
== END 2023-04-06 13:30 | disposition home or self-care (01) | DRG 220 ==
LOC: JP.SDSSCHI 04-04 05:36 → JP.MS 04-04 09:25
PROVIDERS: ADMIT Surgery; ATTEND Surgery
PROC: 0BQT4ZZ Repair Diaphragm, Percutaneous Endoscopic Approach (ICD-10-PCS; principal; 2023-04-04)
PROC: 0D164ZA Bypass Stomach to Jejunum, Percutaneous Endoscopic Approach (ICD-10-PCS; 2023-04-04)
PROC: 0DB64ZZ Excision of Stomach, Percutaneous Endoscopic Approach (ICD-10-PCS; 2023-04-04)
PROC: 0FB04ZX Excision of Liver, Percutaneous Endoscopic Approach, Diagnostic (ICD-10-PCS; 2023-04-04)
DX: K44.9 Diaphragmatic hernia without obstruction or gangrene (principal); E11.43 Type 2 diabetes mellitus with diabetic autonomic (poly)neuropathy; K31.84 Gastroparesis; R16.0 Hepatomegaly, not elsewhere classified; E78.5 Hyperlipidemia, unspecified; J45.909 Unspecified asthma, uncomplicated; G47.33 Obstructive sleep apnea (adult) (pediatric); K08.89 Other specified disorders of teeth and supporting structures; N40.0 Benign prostatic hyperplasia without lower urinary tract symptoms; K21.9 Gastro-esophageal reflux disease without esophagitis; Z98.890 Other specified postprocedural states; Z90.89 Acquired absence of other organs
CPT/HCPCS: 36415; 74240; 74240-26; 80053; 82947; 83036; 83735; 83880; 84100; 85025; 85027; 86850; 86900; 86901; 88305; 88307; 88313; 93005; 93010; 94640; A9270-GY; C9113; J0171; J0330; J0694; J1100; J1170; J1644; J1815; J1815-GY; J2310; J2405; J2704; J2710; J2765; J2795; J3010; J3410; J3411; J3420; J3475; J3490; J7120; J7121; J7620; Q9967; U0002

== ENCOUNTER 2023-03-28 12:54 | Emergency (ER) | payer BC, OTHER ==
[2023-03-28 14:09] LABS: BASOPHILS ABSOLUTE AUTO 0.03 K/uL (0.00-0.10); BASOPHILS PERCENT AUTO 0.6 % (0.1-1.3); EOSINOPHILS ABSOLUTE AUTO 0.19 K/uL (0.00-0.40); EOSINOPHILS PERCENT AUTO 3.5 % (0.0-5.4); HEMATOCRIT 39.9 % (38.4-49.7); HEMOGLOBIN 13.4 g/dL (12.9-16.9); IMMATURE GRAN PERCENT AUTO 0.2 % (0.0-0.7); LYMPHOCYTES ABSOLUTE AUTO 2.44 K/uL (0.8-3.3); LYMPHOCYTES PERCENT AUTO 44.9 % (11.4-47.7); MEAN CORPUSCULAR HGB CONC 33.6 g/dL (31.6-35.5); MEAN CORPUSCULAR VOLUME 86.4 fL (81.4-99.0); MONOCYTES PERCENT AUTO 9.2 % (3.3-12.6); NEUTROPHILS ABSOLUTE AUTO 2.27 K/uL (1.0-7.6); NEUTROPHILS PERCENT AUTO 41.6 % (40.0-78.1); PLATELET COUNT,PLT 252 K/uL (130-375); RED BLOOD CELL COUNT 4.62 M/uL (4.14-5.76); WHITE BLOOD CELL COUNT,WBC 5.4 K/uL (3.2-11.0)
[2023-03-28 14:11] LABS: IMMATURE GRAN ABSOLUTE AUTO 0.01 K/uL (0.00-0.23)
[2023-03-28 14:32] LABS: A/G RATIO 0.9 (1.2-2.2); ALANINE AMINOTRANSFERASE,ALT 35 U/L (12-78); ALBUMIN 3.2 g/dL (3.4-5.0); ALKALINE PHOSPHATASE 73 U/L (46-116); ASPARTATE AMNIOTRANSFERASE,AST 15 U/L (15-37); BILIRUBIN TOTAL 0.3 mg/dL (0.2-1.0); BLOOD UREA NITROGEN,BUN 11 mg/dL (7-18); CALCIUM 8.9 mg/dL (8.5-10.1); CARBON DIOXIDE,CO2 33 mmol/L (21-32); CHLORIDE,CL 102 mmol/L (100-108); EST CRCL DRUG DOSING (CG) 78.85 mL/min; ESTIMATED GFR 88 mL/min (>60); GLUCOSE RANDOM 258 mg/dL (74-106); POTASSIUM,K 4.4 mmol/L (3.6-5.2); PROTEIN TOTAL,TP 6.6 g/dL (6.4-8.2); SODIUM,NA 137 mmol/L (140-148)
[2023-03-28 14:33] LABS: ANION GAP 6.4 mmol/L (5.0-14.0)
[2023-03-28] MEDS ORDERED: HYDROmorphone 1 MG/ML Syringe IM ONE (15:00)
[2023-03-28 15:04] VITALS: BP 122/71; PULSE 65
== END 2023-03-28 15:52 | disposition home or self-care (01) ==
LOC: JP.ED 12:54
DX: E11.43 Type 2 diabetes mellitus with diabetic autonomic (poly)neuropathy (principal); K31.84 Gastroparesis; E78.00 Pure hypercholesterolemia, unspecified; J45.909 Unspecified asthma, uncomplicated; K21.9 Gastro-esophageal reflux disease without esophagitis; E66.9 Obesity, unspecified; Z68.34 Body mass index [BMI] 34.0-34.9, adult; Z87.891 Personal history of nicotine dependence; Z86.16 Personal history of COVID-19; Z79.899 Other long term (current) drug therapy
CPT/HCPCS: 36415; 80053; 83690; 85025; 96372; 99284; J1170

== ENCOUNTER 2024-03-27 15:03 | Emergency (ER) | payer BC, OTHER ==
[2024-03-27 16:48] LABS: BASOPHILS PERCENT AUTO 0.2 % (0.1-1.3); HEMATOCRIT 40.7 % (38.4-49.7); HEMOGLOBIN 14.3 g/dL (12.9-16.9); IMMATURE GRAN PERCENT AUTO 0.2 % (0.0-0.7); LYMPHOCYTES ABSOLUTE AUTO 0.41 K/uL (0.8-3.3); LYMPHOCYTES PERCENT AUTO 10.1 % (11.4-47.7); MEAN CORPUSCULAR HEMOGLOBIN 30.8 pg (31.6-35.5); MEAN CORPUSCULAR HGB CONC 35.1 g/dL (31.6-35.5); MEAN CORPUSCULAR VOLUME 87.5 fL (81.4-99.0); MONOCYTES ABSOLUTE AUTO 0.41 K/uL (0.20-0.90); MONOCYTES PERCENT AUTO 10.1 % (3.3-12.6); NEUTROPHILS PERCENT AUTO 79.4 % (40.0-78.1); PLATELET COUNT,PLT 180 K/uL (130-375); RED BLOOD CELL COUNT 4.65 M/uL (4.14-5.76)
[2024-03-27 16:49] LABS: BASOPHILS ABSOLUTE AUTO 0.01 K/uL (0.00-0.10); IMMATURE GRAN ABSOLUTE AUTO 0.01 K/uL (0.00-0.23)
[2024-03-27] MEDS: Sodium Chloride 0.9% 1,000 ML IV SCH (16:52)
[2024-03-27 17:08] VITALS: BP 143/75; PULSE 82
[2024-03-27 17:11] LABS: ANION GAP 13.5 mmol/L (5.0-14.0); CREATININE 0.8 mg/dL (0.8-1.3); EST CRCL DRUG DOSING (CG) 97.38 mL/min; LACTIC ACID 1.2 mmol/L (0.4-2.0); POTASSIUM,K 3.5 mmol/L (3.6-5.2)
[2024-03-27 17:36] LABS: LYME AB IgG Negative (Negative); LYME AB IgM Negative (Negative)
[2024-03-30 23:43] LABS: ANAPLASMA PHAGOCYTOPHILUM PCR Not Detected; BABESIA MICROTI BY PCR Not Detected; BABESIA SPECIES BY PCR Not Detected; EHRLICHIA CHAFFEENSIS BY PCR Not Detected; EHRLICHIA EWINGII/CANIS BY PCR Not Detected; EHRLICHIA MURIS-LIKE BY PCR Not Detected
== END 2024-03-27 17:57 | disposition home or self-care (01) ==
LOC: JP.ED 15:03
DX: U07.1 COVID-19 (principal); E78.00 Pure hypercholesterolemia, unspecified; J45.909 Unspecified asthma, uncomplicated; K21.9 Gastro-esophageal reflux disease without esophagitis; E11.9 Type 2 diabetes mellitus without complications; E66.9 Obesity, unspecified; Z86.16 Personal history of COVID-19; Z90.49 Acquired absence of other specified parts of digestive tract; Z79.899 Other long term (current) drug therapy
CPT/HCPCS: 71045; 80048; 83605; 84484; 85025; 86618; 87468; 87469; 87484; 87635; 87798; 93005; 96360; 99285; J7030; 36415; U0002

== ENCOUNTER 2024-03-30 16:24 | Emergency (ER) | payer BC, OTHER ==
[2024-03-30] MEDS: Sodium Chloride 0.9% 10 ML Syringe FLUSH PRN (17:35)
[2024-03-30] MEDS: Lactated Ringers 1,000 ML IV ONE (17:35)
[2024-03-30 17:37] LABS: BASOPHILS ABSOLUTE AUTO 0.02 K/uL (0.00-0.10); BASOPHILS PERCENT AUTO 0.7 % (0.1-1.3); EOSINOPHILS ABSOLUTE AUTO 0.06 K/uL (0.00-0.40); HEMATOCRIT 36.5 % (38.4-49.7); HEMOGLOBIN 12.7 g/dL (12.9-16.9); LYMPHOCYTES ABSOLUTE AUTO 1.67 K/uL (0.8-3.3); LYMPHOCYTES PERCENT AUTO 54.9 % (11.4-47.7); MEAN CORPUSCULAR HEMOGLOBIN 30.5 pg (31.6-35.5); MEAN CORPUSCULAR HGB CONC 34.8 g/dL (31.6-35.5); MEAN CORPUSCULAR VOLUME 87.5 fL (81.4-99.0); MONOCYTES ABSOLUTE AUTO 0.36 K/uL (0.20-0.90); MONOCYTES PERCENT AUTO 11.8 % (3.3-12.6); NEUTROPHILS ABSOLUTE AUTO 0.93 K/uL (1.0-7.6); NEUTROPHILS PERCENT AUTO 30.6 % (40.0-78.1); PLATELET COUNT,PLT 141 K/uL (130-375); RED BLOOD CELL COUNT 4.17 M/uL (4.14-5.76)
[2024-03-30 17:57] LABS: ALANINE AMINOTRANSFERASE,ALT 71 U/L (12-78); ALBUMIN 3.2 g/dL (3.4-5.0); ALKALINE PHOSPHATASE 69 U/L (46-116); ANION GAP 7.7 mmol/L (5.0-14.0); ASPARTATE AMNIOTRANSFERASE,AST 39 U/L (15-37); BILIRUBIN TOTAL 0.6 mg/dL (0.2-1.0); BLOOD UREA NITROGEN,BUN 17 mg/dL (7-18); CALCIUM 8.1 mg/dL (8.5-10.1); CARBON DIOXIDE,CO2 27 mmol/L (21-32); CHLORIDE,CL 106 mmol/L (100-108); CREATININE 0.9 mg/dL (0.8-1.3); EST CRCL DRUG DOSING (CG) 86.56 mL/min; ESTIMATED GFR 99 mL/min (>60); GLUCOSE RANDOM 78 mg/dL (74-106); POTASSIUM,K 4.1 mmol/L (3.6-5.2); PROTEIN TOTAL,TP 6.4 g/dL (6.4-8.2); SODIUM,NA 141 mmol/L (140-148)
[2024-03-30 18:35] VITALS: BP 122/70; PULSE 58
== END 2024-03-30 18:36 | disposition home or self-care (01) ==
LOC: JP.ED 16:24
DX: R19.7 Diarrhea, unspecified (principal); E78.00 Pure hypercholesterolemia, unspecified; J45.909 Unspecified asthma, uncomplicated; K21.9 Gastro-esophageal reflux disease without esophagitis; E11.9 Type 2 diabetes mellitus without complications; Z79.51 Long term (current) use of inhaled steroids; Z79.899 Other long term (current) drug therapy; Z86.16 Personal history of COVID-19; Z90.49 Acquired absence of other specified parts of digestive tract
CPT/HCPCS: 36415; 80053; 83605; 85025; 96360; 99284; J3490; J7120

== ENCOUNTER 2024-04-22 06:57 | Day surgery (SDC) | payer BC, OTHER ==
[2024-04-22] MEDS ORDERED: Propofol 200 MG/20 ML SDV ONE (07:25)
[2024-04-22] MEDS ORDERED: fentaNYL 50 MCG/ML SDV ONE (07:25)
[2024-04-22] MEDS ORDERED: Midazolam 1 MG/ML 2 ML SDV ONE (07:25)
[2024-04-22] MEDS: Lactated Ringers 1,000 ML IV SCH (10:18)
[2024-04-22 10:28] VITALS: BP 102/54; PULSE 60
== END 2024-04-22 10:29 | disposition home or self-care (01) ==
LOC: JP.SDS 06:57
PROVIDERS: ATTEND Family Medicine
DX: D12.0 Benign neoplasm of cecum (principal); K64.8 Other hemorrhoids; K92.1 Melena; G47.33 Obstructive sleep apnea (adult) (pediatric); K21.9 Gastro-esophageal reflux disease without esophagitis; E11.9 Type 2 diabetes mellitus without complications
CPT/HCPCS: 45380; 82947; 93005; J2250; J2704; J3010; J7120; 00811-QZ

== ENCOUNTER 2024-07-10 12:10 | Emergency (ER) | payer BC, OTHER ==
[2024-07-10 15:22] VITALS: BP 110/71; PULSE 78
[2024-07-10] MEDS: Lidocaine 2% Jelly 10 ML Urojet MUCMEM ONE (16:00)
[2024-07-10] MEDS: Lidocaine 2% Jelly 10 ML Urojet ONE (16:26)
== END 2024-07-10 17:42 | disposition home or self-care (01) ==
LOC: JP.ED 12:10
DX: Z90.79 Acquired absence of other genital organ(s) (principal); Z96.0 Presence of urogenital implants
CPT/HCPCS: 51702; 99283

== ENCOUNTER 2024-07-16 08:40 | Emergency (ER) | payer BC, OTHER ==
[2024-07-16 09:07] VITALS: BP 120/65; PULSE 54
[2024-07-16] MEDS: Acetaminophen/Codeine 300-30 MG Tab PO ONE (09:41)
[2024-07-16 10:06] LABS: APPEARANCE,URINE TURBID (CLEAR); BILIRUBIN,URINE NEGATIVE (NEGATIVE); COLOR,URINE YELLOW (YELLOW); GLUCOSE,URINE NEGATIVE (NEGATIVE); KETONES,URINE NEGATIVE (NEGATIVE); LEUKOCYTE ESTERASE,URINE MODERATE (NEGATIVE); NITRITE,URINE NEGATIVE (NEGATIVE); OCCULT BLOOD,URINE LARGE (NEGATIVE); PROTEIN,URINE 100 mg/dL (NEGATIVE); UROBILINOGEN,URINE 0.2 EU/dL (0.2-1.0)
[2024-07-16 10:24] LABS: AMORPHOUS SEDIMENT,URINE NOT SEEN; BACTERIA,URINE MODERATE; EPITHELIAL CELLS,URINE MODERATE; MUCUS,URINE MANY; RBC,URINE 50-75 (0-5); WBC,URINE 20-30 (0-5)
== END 2024-07-16 10:54 | disposition home or self-care (01) ==
LOC: JP.ED 08:40
DX: N39.0 Urinary tract infection, site not specified (principal); N13.9 Obstructive and reflux uropathy, unspecified; J45.909 Unspecified asthma, uncomplicated; E78.00 Pure hypercholesterolemia, unspecified; K21.9 Gastro-esophageal reflux disease without esophagitis; E11.9 Type 2 diabetes mellitus without complications; Z90.49 Acquired absence of other specified parts of digestive tract; Z86.16 Personal history of COVID-19; Z79.51 Long term (current) use of inhaled steroids; Z79.899 Other long term (current) drug therapy
CPT/HCPCS: 81001; 87086; 99284; A9270; 99283

== ENCOUNTER 2025-05-29 14:59 | Emergency (ER) | payer BC, OTHER ==
[2025-05-29 17:19] LABS: BASOPHILS ABSOLUTE AUTO 0.04 K/uL (0.00-0.10); BASOPHILS PERCENT AUTO 1.1 % (0.1-1.3); EOSINOPHILS ABSOLUTE AUTO 0.25 K/uL (0.00-0.40); EOSINOPHILS PERCENT AUTO 6.8 % (0.0-5.4); IMMATURE GRAN PERCENT AUTO 0.0 % (0.0-0.7); LYMPHOCYTES ABSOLUTE AUTO 1.88 K/uL (0.8-3.3); LYMPHOCYTES PERCENT AUTO 51.1 % (11.4-47.7); MONOCYTES ABSOLUTE AUTO 0.36 K/uL (0.20-0.90); MONOCYTES PERCENT AUTO 9.8 % (3.3-12.6); NEUTROPHILS ABSOLUTE AUTO 1.15 K/uL (1.0-7.6); NEUTROPHILS PERCENT AUTO 31.2 % (40.0-78.1); PLATELET COUNT,PLT 191 K/uL (130-375); RED BLOOD CELL COUNT 4.34 M/uL (4.14-5.76); WHITE BLOOD CELL COUNT,WBC 3.7 K/uL (3.2-11.0)
[2025-05-29 17:20] LABS: IMMATURE GRAN ABSOLUTE AUTO 0.00 K/uL (0.00-0.23)
[2025-05-29 17:43] LABS: A/G RATIO 1.1 (1.2-2.2); ALANINE AMINOTRANSFERASE,ALT 98 U/L (12-78); ASPARTATE AMNIOTRANSFERASE,AST 68 U/L (15-37); BILIRUBIN TOTAL 0.7 mg/dL (0.2-1.0); BLOOD UREA NITROGEN,BUN 10 mg/dL (7-18); CARBON DIOXIDE,CO2 30 mmol/L (21-32); CHLORIDE,CL 105 mmol/L (100-108); CREATININE 0.8 mg/dL (0.8-1.3); EST CRCL DRUG DOSING (CG) 96.19 mL/min; ESTIMATED GFR 102 mL/min (>60); GLUCOSE RANDOM 91 mg/dL (74-106); POTASSIUM,K 4.1 mmol/L (3.6-5.2); PROTEIN TOTAL,TP 6.5 g/dL (6.4-8.2); SODIUM,NA 138 mmol/L (140-148); TROPONIN I HIGH SENSITIVITY 5.2 pg/mL (<=60.3)
[2025-05-29 20:18] VITALS: BP 135/80; PULSE 54
== END 2025-05-29 20:28 | disposition home or self-care (01) ==
LOC: JP.ED 14:59
DX: J40 Bronchitis, not specified as acute or chronic (principal); R42 Dizziness and giddiness; E78.00 Pure hypercholesterolemia, unspecified; E11.9 Type 2 diabetes mellitus without complications; Z86.16 Personal history of COVID-19; Z79.899 Other long term (current) drug therapy; Z90.49 Acquired absence of other specified parts of digestive tract
CPT/HCPCS: 36415; 71045; 80053; 84484; 85025; 93005; 96360; 99285; A9270; J7030